=== PATIENT | female | born 1970 | race Caucasian/White ===

== ENCOUNTER 2019-07-23 09:20 | Outpatient (CLI) | payer OTHER, SELFPAY ==
[2019-07-23 09:35] LABS: Basophils Absolute Auto 0.07 K/mm3 (0.00-0.10); Basophils Percent Auto 0.8 % (0.0-1.0); Eosinophils Percent Auto 2.2 % (1.0-6.0); Hematocrit 39.8 % (35.0-49.0); Hemoglobin 12.8 g/dL (12.0-15.0); Immature Granulocyte Absolute 0.03 K/mm3 (0.00-0.00); Immature Granulocyte Percent A 0.3 % (0.0-0.0); Lymphocytes Absolute Auto 2.26 K/mm3 (1.10-4.50); Lymphocytes Percent Auto 24.7 % (18.0-42.0); Mean Corpuscular HGB Conc 32.2 g/dL (32.0-36.0); Mean Corpuscular Hemoglobin 28.5 pg (27.0-31.0); Mean Corpuscular Volume 88.6 fL (78.0-102.0); Mean Platelet Volume 10.4 fl (9.2-11.8); Monocytes Absolute Auto 0.37 K/mm3 (0.10-0.90); Neutrophils Absolute Auto 6.2 K/mm3 (1.7-7.2); Platelet Count Result 225 K/mm3 (150-420); Red Blood Count 4.49 M/mm3 (4.20-5.40); Red Cell Distribution Width 15.6 % (11.6-14.4); White Blood Count 9.2 K/mm3 (4.8-10.8)
[2019-07-23 09:58] LABS: Hemoglobin A1C 7.4 % (<5.7)
[2019-07-23 10:08] LABS: Add Urine Microscopic? NO; Appearance Urine Clear (Clear); Bilirubin Urine Negative (Negative); Blood Urine Negative (Negative); Color Urine Yellow (Yellow); Glucose Urine UA Negative (Negative); Ketones Urine Negative (Negative); Leukocyte Esterase Ur Negative LEU/UL (Negative); Nitrate Urine Negative (Negative); Protein Urine Negative (Negative); Urobilinogen Urine 0.2 mg/dL (0.2-1.0); pH Urine 6.5 (5.0-8.0)
[2019-07-23 10:57] LABS: Creatinine Urine 135.64 mg/dL (40-278); MALB Creatinine Ratio 6.4 mg/g (0-30); Microalbumin Urine Random 8.8 mg/L
[2019-07-23 11:09] LABS: Alanine Aminotransferase 22 U/L (14-59); Albumin Level 3.3 g/dL (3.4-5.0); Alkaline Phosphatase 89 U/L (46-116); Anion Gap 10.1 mmol/L (7-16); Aspartate Amino Transferase 10 U/L (15-37); Bilirubin,Total 0.2 mg/dL (0.00-1.00); Blood Urea Nitrogen 12 mg/dL (7-18); Calcium 8.8 mg/dL (8.5-10.1); Carbon Dioxide 32 mmol/L (21-32); Chloride 101 mmol/L (98-108); Cholesterol 201 mg/dL (0-200); Creatine Kinase 87 U/L (26-192); Estimated Glomerular Filt Rate > 60; Free T3 2.74 pg/mL (2.18-3.98); Free T4 Free Thyroxine 0.74 ng/dL (0.76-1.46); Glucose 155 mg/dL (70-99); HDL Direct 26 mg/dL (40-60); LDL Cholesterol Calculated 147 mg/dL (<130); Osmolality Calculated 290 mOsm/kg (285-295); Potassium 4.1 mmol/L (3.5-5.1); Sodium 139 mmol/L (136-145); Thyroid Stimulating Hormone 2.99 uIU/mL (0.36-3.74); Total Protein 6.8 g/dL (6.4-8.2); Triglycerides 140 mg/dL (0-150)
== END 2019-07-23 09:21 | disposition home or self-care (01) ==
PROVIDERS: PCP Internal Medicine; Visit Provider Internal Medicine
DX: E78.5 Hyperlipidemia, unspecified (principal); I10 Essential (primary) hypertension; E03.9 Hypothyroidism, unspecified; E11.9 Type 2 diabetes mellitus without complications
CPT/HCPCS: 36415; 80053; 80061; 81003; 82043; 82550; 83036; 84439; 84443; 84481; 85025

== ENCOUNTER 2019-08-19 12:56 | Outpatient (CLI) | payer OTHER, SELFPAY ==
--- NOTE | ~2019-08-19 | MM_ITS ---
EXAMINATION: MM screening fab BI w adelia HISTORY: Screening mammogram TECHNIQUE: Craniocaudal and mediolateral oblique 3-D tomosynthesis images were obtained and synthetic 2-D images were generated. CAD analysis was submitted and interpreted. COMPARISON: Comparison to multiple prior studies sequentially, with oldest reviewed study dated 03/17. BREAST PARENCHYMAL COMPOSITION: There are scattered areas of fibroglandular density. FINDINGS: There is no evidence of suspicious mass, calcification, or architectural distortion to sugg est malignancy in either breast. There has been no suspicious interval change. IMPRESSION: 1. No mammographic evidence of malignancy. 2. Recommend routine screening mammography in one year. BI-RADS Category 1: Negative Reviewed, dictated and finalized at location A.
--- NOTE | ~2019-08-19 | US_ITS ---
EXAMINATION: US thyroid DATE: 08/19/2019 14:11 INDICATION: Thyroid nodule. TECHNIQUE: Multiple ultrasound images of the thyroid were obtained. COMPARISON: Ultrasound 05/28/2018, 02/04/2017 FINDINGS: The right thyroid lobe measures 3.7 x 1.2 x 1.5 cm. The left thyroid lobe measures 3.4 x 1.1 x 1.4 c m. In the left thyroid lobe, there is a 7 mm solid, hypoechoic, [id number]-bhmp-[id number] nodule with ill-defi cooper margin without echogenic foci (TI-RADS TR4). There are 2 nodules in right thyroid lobe measuring up to 4 mm. IMPRESSION: 1. Small thyroid nodules, likely not clinically significant. No follow-up is needed. Reviewed, dictated and finalized at location A. TIE MAKER IMPRESSION: 1. Small thyroid nodules, likely not clinically significant. No follow-up is ne eded.
== END 2019-08-19 12:57 | disposition home or self-care (01) ==
LOC: CHSIMG 12:57
PROVIDERS: PCP Internal Medicine; Visit Provider Internal Medicine
DX: E04.1 Nontoxic single thyroid nodule (principal); Z12.31 Encounter for screening mammogram for malignant neoplasm of breast
CPT/HCPCS: 76536; 77063; 77067

== ENCOUNTER 2019-11-18 08:41 | Outpatient (CLI) | payer OTHER, SELFPAY ==
[2019-11-18 08:59] LABS: Add Urine Microscopic? YES; Appearance Urine Sl Cloudy (Clear); Bilirubin Urine Negative (Negative); Blood Urine Negative (Negative); Color Urine Yellow (Yellow); Glucose Urine UA Negative (Negative); Ketones Urine Negative (Negative); Leukocyte Esterase Ur 1+ (Negative); Nitrate Urine Negative (Negative); Protein Urine Trace (Negative); Specific Grav Ur 1.025 (1.010-1.020); Urobilinogen Urine 0.2 mg/dL (0.2-1.0)
[2019-11-18 09:03] LABS: RBC Urine 0-2 /hpf (0-2); Squamous Epithelial Cell Urine Moderate /hpf (Few); WBC Urine 0-3 /hpf (0-3)
[2019-11-18 09:04] LABS: Bacteria Urine 3+ /hpf
[2019-11-18 09:20] LABS: Basophils Absolute Auto 0.05 K/mm3 (0.00-0.10); Basophils Percent Auto 0.5 % (0.0-1.0); Eosinophils Percent Auto 2.1 % (1.0-6.0); Hematocrit 40.3 % (35.0-49.0); Hemoglobin 13.1 g/dL (12.0-15.0); Immature Granulocyte Absolute 0.04 K/mm3 (0.00-0.00); Immature Granulocyte Percent A 0.4 % (0.0-0.0); Lymphocytes Absolute Auto 2.56 K/mm3 (1.10-4.50); Lymphocytes Percent Auto 26.4 % (18.0-42.0); Mean Corpuscular HGB Conc 32.5 g/dL (32.0-36.0); Mean Corpuscular Volume 89.4 fL (78.0-102.0); Mean Platelet Volume 10.3 fl (9.2-11.8); Monocytes Absolute Auto 0.38 K/mm3 (0.10-0.90); Monocytes Percent Auto 3.9 % (2.0-11.0); Neutrophils Absolute Auto 6.5 K/mm3 (1.7-7.2); Neutrophils Percent Auto 66.7 % (50.0-70.0); Platelet Count Result 255 K/mm3 (150-420); Red Blood Count 4.51 M/mm3 (4.20-5.40); Red Cell Distribution Width 16.6 % (11.6-14.4); White Blood Count 9.7 K/mm3 (4.8-10.8)
[2019-11-18 09:21] LABS: Hemoglobin A1C 6.9 % (<5.7)
[2019-11-18 09:49] LABS: Alanine Aminotransferase 21 U/L (14-59); Albumin Level 3.2 g/dL (3.4-5.0); Alkaline Phosphatase 79 U/L (46-116); Anion Gap 9.2 mmol/L (7-16); Aspartate Amino Transferase 12 U/L (15-37); Bilirubin,Total 0.3 mg/dL (0.00-1.00); Blood Urea Nitrogen 11 mg/dL (7-18); Calcium 8.9 mg/dL (8.5-10.1); Carbon Dioxide 32 mmol/L (21-32); Chloride 102 mmol/L (98-108); Cholesterol 204 mg/dL (0-200); Creatine Kinase 91 U/L (26-192); Estimated Glomerular Filt Rate > 60; Free T4 Free Thyroxine 1.16 ng/dL (0.76-1.46); Glucose 120 mg/dL (70-99); HDL Direct 22 mg/dL (40-60); LDL Cholesterol Calculated 152 mg/dL (<130); Osmolality Calculated 288 mOsm/kg (285-295); Potassium 4.2 mmol/L (3.5-5.1); Sodium 139 mmol/L (136-145); Thyroid Stimulating Hormone 1.23 uIU/mL (0.36-3.74); Total Protein 6.4 g/dL (6.4-8.2); Triglycerides 151 mg/dL (0-150)
== END 2019-11-18 08:42 | disposition home or self-care (01) ==
PROVIDERS: PCP Internal Medicine; Visit Provider Internal Medicine
DX: E03.4 Atrophy of thyroid (acquired) (principal); E78.2 Mixed hyperlipidemia; I10 Essential (primary) hypertension; E11.9 Type 2 diabetes mellitus without complications
CPT/HCPCS: 36415; 80053; 80061; 81001; 82550; 83036; 84439; 84443; 85025

== ENCOUNTER 2020-02-11 13:27 | Outpatient (CLI) | payer OTHER, SELFPAY ==
--- NOTE | ~2020-02-11 | US_ITS ---
EXAMINATION: US venous doppler LE EXAM DATE: 02/11/2020 14:10 INDICATION: Bilateral leg edema. TECHNIQUE: Multiple grayscale, color flow and Doppler images of the lower extremity deep venous syste ms bilaterally were obtained and reviewed. There is no prior study for comparison. FINDINGS: Right side: The right common femoral, femoral and profunda veins demonstrate normal color flow, respi ratory variation, augmentation and compressibility. Compressibility, color flow confirmed within the right popliteal, posterior tibial, peroneal, and greater saphenous veins. Left side: The left common femoral, femoral and profunda veins demonstrate normal color flow, respira tory variation, augmentation and compressibility. Compressibility, color flow confirmed within the l eft popliteal, posterior tibial, peroneal, and greater saphenous veins. IMPRESSION: 1. No lower extremity deep venous thrombosis bilaterally. Reviewed, dictated and finalized at location A.
[2020-02-11 13:41] LABS: Basophils Absolute Auto 0.08 K/mm3 (0.00-0.10); Basophils Percent Auto 0.7 % (0.0-1.0); Eosinophils Absolute Auto 0.26 K/mm3 (0.02-0.50); Eosinophils Percent Auto 2.1 % (1.0-6.0); Hematocrit 34.7 % (35.0-49.0); Hemoglobin 10.8 g/dL (12.0-15.0); Immature Granulocyte Absolute 0.07 K/mm3 (0.00-0.00); Immature Granulocyte Percent A 0.6 % (0.0-0.0); Lymphocytes Absolute Auto 3.07 K/mm3 (1.10-4.50); Mean Corpuscular HGB Conc 31.1 g/dL (32.0-36.0); Mean Corpuscular Hemoglobin 28.3 pg (27.0-31.0); Mean Corpuscular Volume 91.1 fL (78.0-102.0); Mean Platelet Volume 9.8 fl (9.2-11.8); Monocytes Absolute Auto 0.59 K/mm3 (0.10-0.90); Monocytes Percent Auto 4.8 % (2.0-11.0); Neutrophils Absolute Auto 8.2 K/mm3 (1.7-7.2); Neutrophils Percent Auto 66.8 % (50.0-70.0); Platelet Count Result 289 K/mm3 (150-420); Red Blood Count 3.81 M/mm3 (4.20-5.40); Red Cell Distribution Width 15.9 % (11.6-14.4); White Blood Count 12.3 K/mm3 (4.8-10.8)
[2020-02-11 13:56] LABS: D Dimer 0.46 mg/L (0.19-0.50)
[2020-02-11 14:07] LABS: Alanine Aminotransferase 19 U/L (14-59); Albumin Level 2.9 g/dL (3.4-5.0); Alkaline Phosphatase 75 U/L (46-116); Anion Gap 8 mmol/L (8-16); Aspartate Amino Transferase 11 U/L (15-37); Bilirubin,Total 0.2 mg/dL (0.00-1.00); Blood Urea Nitrogen 8 mg/dL (7-18); Calcium 8.6 mg/dL (8.5-10.1); Carbon Dioxide 31 mmol/L (21-32); Chloride 102 mmol/L (98-108); Estimated Glomerular Filt Rate > 60; Free T4 Free Thyroxine 0.96 ng/dL (0.76-1.46); Glucose 86 mg/dL (70-99); Osmolality Calculated 289 mOsm/kg (285-295); Potassium 3.5 mmol/L (3.5-5.1); Sodium 141 mmol/L (136-145); Thyroid Stimulating Hormone 2.84 uIU/mL (0.36-3.74); Total Protein 6.4 g/dL (6.4-8.2)
== END 2020-02-11 13:28 | disposition home or self-care (01) ==
LOC: CHSLAB 13:30
PROVIDERS: PCP Internal Medicine; Visit Provider Internal Medicine
DX: R60.0 Localized edema (principal); E03.9 Hypothyroidism, unspecified
CPT/HCPCS: 36415; 80053; 84439; 84443; 85025; 85380; 93970

== ENCOUNTER 2020-03-03 13:56 | Outpatient (CLI) | payer OTHER, SELFPAY ==
--- NOTE | ~2020-03-03 | US_ITS ---
EXAMINATION: US thyroid DATE: 03/03/2020 14:41 INDICATION: Thyroid nodule. TECHNIQUE: Multiple ultrasound images of the thyroid were obtained. COMPARISON: Thyroid ultrasound 05/28/2018, 02/04/2017 FINDINGS: The right thyroid lobe measures 4.1 x 1.4 x 1.5 cm. The left thyroid lobe measures 4.0 x 1.2 x 1.2 c m. There are a few nodules in the thyroid measuring up to 4 mm. IMPRESSION: 1. Small thyroid nodules, likely not clinically significant. No follow-up is needed. Reviewed, dictated and finalized at location A. IMPRESSION: 1. Small thyroid nodules, likely not clinically significant. No follow-up is ne eded.
[2020-03-03 14:59] LABS: Anion Gap 4 mmol/L (8-16); Blood Urea Nitrogen 15 mg/dL (7-18); Calcium 8.6 mg/dL (8.5-10.1); Carbon Dioxide 32 mmol/L (21-32); Chloride 103 mmol/L (98-108); Estimated Glomerular Filt Rate > 60; Glucose 175 mg/dL (70-99); Osmolality Calculated 292 mOsm/kg (285-295); Potassium 3.9 mmol/L (3.5-5.1); Sodium 139 mmol/L (136-145)
== END 2020-03-03 13:57 | disposition home or self-care (01) ==
PROVIDERS: PCP Internal Medicine; Visit Provider Internal Medicine
DX: E04.1 Nontoxic single thyroid nodule (principal); E87.1 Hypo-osmolality and hyponatremia
CPT/HCPCS: 36415; 76536; 80048

== ENCOUNTER → 2020-10-16 00:11 | Outpatient (CLI) | payer OTHER, SELFPAY ==
[2020-10-16 19:15] LABS: SARS-CoV-2 RNA PCR Negative
== END ==
PROVIDERS: PCP Internal Medicine; Visit Provider Surgery
DX: Z01.812 Encounter for preprocedural laboratory examination (principal); Z20.822 Contact with and (suspected) exposure to COVID-19
CPT/HCPCS: C9803; U0003; U0005

== ENCOUNTER 2020-10-19 01:35 | Day surgery (SDC) | payer OTHER, SELFPAY ==
[2020-10-11 10:35] VITALS: BMI 43.3
--- NOTE | 2020-10-18 11:34 | WPDANESEPPF ---
Anes - Initial Pre Proc Eval Procedure: Operation Date: 10/19/20 10:00 Proposed Procedures p Screening Colonoscopy - Daniel Hoffman DO Date/Time: 10/18/20 11:34 Surgeon: Daniel Hoffman DO Pre Op Diagnosis: neoplasm screening Patient Data Age: 49 Gender: F Height: 1.55 m Weight: 104 kg Allergies Allergy/AdvReac Type Severity Reaction Status Date / Time Penicillins Allergy Intermediate Hives Verified 10/19/20 08:48 Home Medications Medication Instructions Recorded Confirmed Type fluticasone propion-salmeterol 2 inh INHALATION BID 10/11/20 10/11/20 History glipizide 10 mg PO DAILY 10/11/20 10/11/20 History levothyroxine 75 mcg PO DAILY 10/11/20 10/11/20 History lisinopril-hydrochlorothiazide 1 tablet PO DAILY 10/11/20 10/11/20 History lovastatin 40 mg PO DAILY 10/11/20 10/11/20 History sertraline 200 mg PO DAILY 10/11/20 10/11/20 History umeclidinium [Incruse Ellipta] 1 inh INHALATION DAILY 10/11/20 10/11/20 History Patient hx anesthesia problems: none Family hx anesthesia problems: none PMFSH Past Medical History Medical History (Updated 10/18/20 @ 11:35 by Tarun Valverde DO) Anxiety Asthma COPD (chronic obstructive pulmonary disease) Depression Diabetes type 2, controlled Hyperlipidemia Hypertension Hypothyroidism PHILLIP (obstructive sleep apnea) Surgical History Surgical History (Updated 10/18/20 @ 11:35 by Tarun Valverde DO) History of tubal ligation Family History Family History (Updated 01/12/16 @ 23:19 by DOCTOR UNKNOWN) Mother Family history of chronic obstructive pulmonary disease Father Family history of diabetes mellitus in first degree relative Other Family history of cardiovascular disease Family history of malignant neoplasm Social History Social History Smoking packs per day: 0.75 Smoking cigarettes per day: 15.0 Years smoked: 30 Smoking pack-years: 22.50 Smoking status: Current every day smoker Tobacco type: cigarettes Alcohol intake: current Substance use: never Substance use type: does not use Spiritual care concerns: No Anes - Eval Final PreProcedure Day of Procedure 10/18/20 11:34 Patient weight: morbidly obese Heart: regular rate and rhythm Lungs: clear to auscultation and normal air movement Airway: Mallampati scale class 1 Neurological: alert and oriented Last oral intake: >/= 8 hours ASA classification: III Emergent: no Anesthetic plan: proceed Anesthesia type and monitoring: general GIVS and standard monitoring Informed Consent: The patient's anesthetic plan and its attendant risks and benefits were discussed with the patient/family/POA. Questions were solicited and answers provided to the satisfaction of the patient/family/POA.
[2020-10-19 08:49] VITALS: BP 137/77; PULSE 84; RESP 22; TEMP 36.4; O2SAT 98
[2020-10-19] MEDS: LACTATED RINGERS 1,000 ML 150 ML IV CONT (09:03)
[2020-10-19 09:10] LABS: Glucose Point of Care 110 (65-105)
--- NOTE | 2020-10-19 09:44 | PM.IMHP ---
H&P: HPI History of Present Illness Date/Time: 10/19/20 09:44 Chief Complaint: low iron Narrative: this is a 49-year-old woman who presents for her 1st colonoscopy. He states that her doctor told her her iron levels were low and she is also due for colonoscopy at her age. She denies any hematochezia or melena. There are no first-degree relatives with colon cancer, but she does have a grandmother who colon cancer at an old age. Review of Systems Review of Systems: All systems reviewed & are unremarkable except as noted in HPI and below Constitutional: Constitutional: Denies chills, Denies fever(s), Denies headache(s) and Denies weight loss Eyes: Eyes: Denies change in vision ENT: Denies dizziness, Denies headache(s), Denies neck mass and Denies throat swelling Cardiovascular: Cardiovascular: Denies chest pain, Denies lightheadedness and Denies dyspnea Respiratory: Respiratory: Denies cough, Denies dyspnea and Denies wheezing Gastrointestinal: Gastrointestinal: Denies abdominal pain, Denies change in bowel habits, Denies nausea and Denies vomiting Genitourinary: Genitourinary: Denies hematuria and Denies dysuria Musculoskeletal: Musculoskeletal: Reports as per HPI Integumentary/Breasts: Skin/Breast: Reports as per HPI Neurologic: Denies dizziness and Denies headache(s) Allergic/Immunologic: Allergic/Immunologic: Denies throat swelling and Denies wheezing FOR[facility]LY [facility] Past Medical History Medical History Anxiety Asthma COPD (chronic obstructive pulmonary disease) Depression Diabetes type 2, controlled Hyperlipidemia Hypertension Hypothyroidism PHILLIP (obstructive sleep apnea) Surgical History Surgical History History of tubal ligation Family History Family History Mother Family history of chronic obstructive pulmonary disease Father Family history of diabetes mellitus in first degree relative Other Family history of cardiovascular disease Family history of malignant neoplasm Social History Social History Smoking packs per day: 0.75 Smoking cigarettes per day: 15.0 Years smoked: 30 Smoking pack-years: 22.50 Smoking status: Current every day smoker Tobacco type: cigarettes Alcohol intake: current Substance use: never Substance use type: does not use Spiritual care concerns: No Meds Home Medications and Allergies Home Medications Medication Instructions Recorded Confirmed Type fluticasone propion-salmeterol 2 inh INHALATION BID 10/11/20 10/11/20 History glipizide 10 mg PO DAILY 10/11/20 10/11/20 History levothyroxine 75 mcg PO DAILY 10/11/20 10/11/20 History lisinopril-hydrochlorothiazide 1 tablet PO DAILY 10/11/20 10/11/20 History lovastatin 40 mg PO DAILY 10/11/20 10/11/20 History sertraline 200 mg PO DAILY 10/11/20 10/11/20 History umeclidinium [Incruse Ellipta] 1 inh INHALATION DAILY 10/11/20 10/11/20 History Allergies Allergy/AdvReac Type Severity Reaction Status Date / Time Penicillins Allergy Intermediate Hives Verified 10/19/20 08:48 Vital Signs Vital Signs - 24 hr 10/19/20 08:49 Temperature 36.4 C Pulse Rate 84 Respiratory Rate 22 H Blood Pressure 137/77 Pulse Oximetry 98 Exam Const: General: no acute distress and alert Orientation/consciousness: patient oriented x3 HENMT: Head: normocephalic and atraumatic Ears: hearing grossly normal bilaterally General nose exam: Normal nares present Mouth: Yes Normal oral and palatal mucosa present Eyes: Periorbital: periorbital findings normal Sclera: sclerae normal EOM: EOMs intact bilaterally Neck: Neck: normal visual inspection, no lymphadenopathy and trachea midline Chest: Chest palpation & inspection: normal inspection of the chest Resp: Effort & Inspection: normal res
[2020-10-19 11:00] VITALS: BP 130/77; PULSE 90; RESP 16; O2SAT 98
[2020-10-19 11:10] VITALS: BP 133/70; PULSE 85; RESP 18; O2SAT 98
[2020-10-19 11:20] VITALS: BP 134/81; PULSE 91; RESP 21; O2SAT 97
== END 2020-10-19 11:26 | disposition home or self-care (01) ==
PROVIDERS: PCP Internal Medicine; Visit Provider Surgery
PROC: 0DJD8ZZ Inspection of Lower Intestinal Tract, Via Natural or Artificial Opening Endoscopic (ICD-10-PCS; CPT 45378; principal; 2020-10-19 10:00)
DX: Z12.11 Encounter for screening for malignant neoplasm of colon (principal); D12.3 Benign neoplasm of transverse colon; K63.5 Polyp of colon; K57.30 Diverticulosis of large intestine without perforation or abscess without bleeding; J45.909 Unspecified asthma, uncomplicated; F41.8 Other specified anxiety disorders; G47.33 Obstructive sleep apnea (adult) (pediatric); E78.5 Hyperlipidemia, unspecified; E11.9 Type 2 diabetes mellitus without complications; E03.9 Hypothyroidism, unspecified; I10 Essential (primary) hypertension; Z87.891 Personal history of nicotine dependence; E66.01 Morbid (severe) obesity due to excess calories; Z68.42 Body mass index [BMI] 45.0-49.9, adult; Z80.0 Family history of malignant neoplasm of digestive organs
CPT/HCPCS: 45385; 82948; 88305; J2704; J7120

== ENCOUNTER 2021-05-08 10:34 | Outpatient (CLI) | payer OTHER, SELFPAY ==
[2021-05-08 10:47] LABS: Basophils Absolute Auto 0.08 K/mm3 (0.00-0.10); Basophils Percent Auto 0.7 % (0.0-1.0); Eosinophils Absolute Auto 0.24 K/mm3 (0.02-0.50); Hematocrit 43.3 % (35.0-49.0); Hemoglobin 13.4 g/dL (12.0-15.0); Immature Granulocyte Absolute 0.05 K/mm3 (0.00-0.00); Immature Granulocyte Percent A 0.4 % (0.0-0.0); Lymphocytes Absolute Auto 3.17 K/mm3 (1.10-4.50); Lymphocytes Percent Auto 26.7 % (18.0-42.0); Mean Corpuscular HGB Conc 30.9 g/dL (32.0-36.0); Mean Corpuscular Hemoglobin 29.2 pg (27.0-31.0); Mean Corpuscular Volume 94.3 fL (78.0-102.0); Mean Platelet Volume 10.1 fl (9.2-11.8); Monocytes Absolute Auto 0.55 K/mm3 (0.10-0.90); Monocytes Percent Auto 4.6 % (2.0-11.0); Neutrophils Absolute Auto 7.8 K/mm3 (1.7-7.2); Neutrophils Percent Auto 65.6 % (50.0-70.0); Platelet Count Result 316 K/mm3 (150-420); Red Blood Count 4.59 M/mm3 (4.20-5.40); Red Cell Distribution Width 15.6 % (11.6-14.4); White Blood Count 11.9 K/mm3 (4.8-10.8)
[2021-05-08 11:05] LABS: Hemoglobin A1C 5.8 % (<5.7)
[2021-05-08 11:44] LABS: Alanine Aminotransferase 22 U/L (14-59); Albumin Level 3.4 g/dL (3.4-5.0); Alkaline Phosphatase 79 U/L (46-116); Anion Gap 8 mmol/L (8-16); Aspartate Amino Transferase 10 U/L (15-37); Bilirubin,Total 0.2 mg/dL (0.00-1.00); Blood Urea Nitrogen 13 mg/dL (7-18); Calcium 8.9 mg/dL (8.5-10.1); Carbon Dioxide 32 mmol/L (21-32); Chloride 102 mmol/L (98-108); Cholesterol 170 mg/dL (0-200); Estimated Glomerular Filt Rate > 60; Ferritin 81 ng/mL (8-252); Glucose 133 mg/dL (70-99); HDL Direct 24 mg/dL (40-60); Iron 45 ug/dL (50-170); LDL Cholesterol Calculated 126 mg/dL (<130); Osmolality Calculated 296 mOsm/kg (285-295); Percent Iron Saturation 14 % (12-57); Potassium 4.2 mmol/L (3.5-5.1); Sodium 142 mmol/L (136-145); Total Protein 6.5 g/dL (6.4-8.2); Triglycerides 100 mg/dL (0-150)
[2021-05-08 15:19] LABS: Free T4 Free Thyroxine 1.04 ng/dL (0.76-1.46)
== END 2021-05-08 10:35 | disposition home or self-care (01) ==
LOC: CHSLAB 10:36
PROVIDERS: PCP Internal Medicine; Visit Provider Internal Medicine
DX: D50.9 Iron deficiency anemia, unspecified (principal); E78.5 Hyperlipidemia, unspecified; E11.9 Type 2 diabetes mellitus without complications; E03.9 Hypothyroidism, unspecified
CPT/HCPCS: 36415; 80053; 80061; 82728; 83036; 83540; 83550; 84439; 84443; 85025

== ENCOUNTER 2021-12-25 12:01 | Outpatient (CLI) | payer OTHER, SELFPAY ==
--- NOTE | ~2021-12-25 | MM_ITS ---
EXAMINATION: MM screening [facility] BI w adelia HISTORY: Screening mammogram TECHNIQUE: Craniocaudal and mediolateral oblique 3-D tomosynthesis images were obtained and synthetic 2-D images were generated. CAD analysis was submitted and interpreted. COMPARISON: 08/19/2019, 02/09/2018, 09/17/2016 BREAST PARENCHYMAL COMPOSITION: There are scattered areas of fibroglandular density. FINDINGS: RIGHT BREAST: Asymmetry is present in the middle third of the outer breast 10 cm from the nipple on t he craniocaudal view. LEFT BREAST: There is no suspicious mass, calcification, or architectural distortion to suggest malig heri. There has been no significant interval change. IMPRESSION: 1. Right breast asymmetry. 2. Additional mammographic views and possible breast ultrasound are recommended. BI-RADS Category 0: Incomplete: Needs additional imaging evaluation. Reviewed, dictated and finalized at location A. IMPRESSION: 1. Right breast asymmetry. 2. Additional mammographic views and possible breast ultrasound are recommended . BI-RADS Category 0: Incomplete: Needs additional imaging evaluation.
== END 2021-12-25 12:02 | disposition home or self-care (01) ==
LOC: CHSIMG 12:03
PROVIDERS: PCP Internal Medicine; Visit Provider Internal Medicine
DX: Z12.31 Encounter for screening mammogram for malignant neoplasm of breast (principal)
CPT/HCPCS: 77063; 77067

== ENCOUNTER 2021-12-31 09:54 | Outpatient (CLI) | payer OTHER, SELFPAY ==
--- NOTE | ~2021-12-31 | MMUS_ITS ---
EXAMINATION: MM diagnostic fab RT w adelia, US breast RT limited HISTORY: Follow-up right breast asymmetry TECHNIQUE: Additional 3-D tomosynthesis images of the right breast were performed and synthetic 2-D i mages were generated. CAD analysis was submitted and interpreted. High resolution Limited right breas t ultrasound was performed. COMPARISON: Comparison to multiple prior studies sequentially, with oldest reviewed study dated 09/06. BREAST PARENCHYMAL COMPOSITION: Breast composed of scattered areas of fibroglandular density FINDINGS: MAMMOGRAPHIC FINDINGS: There are no suspicious masses, calcifications or architectural distortion in the right breast to sug gest malignancy. Right breast asymmetry in the lower outer quadrant is less dense with spot compressi on views, likely benign superimposed fibroglandular content. ULTRASOUND: Limited right breast ultrasound: Normal heterogeneous echotexture without focal solid or cystic mass. IMPRESSION: 1. Probable benign right breast asymmetry. 2. Recommend 6 month follow-up diagnostic right mammogram BI-RADS category 3, probably benign findings. Reviewed, dictated and finalized at location A. IMPRESSION: 1. Probable benign right breast asymmetry. 2. Recommend 6 month follow-up diagnostic right mammogram BI-RADS category 3, probably benign findings.
== END 2021-12-31 09:55 | disposition home or self-care (01) ==
LOC: CHSIMG 09:56
PROVIDERS: PCP Internal Medicine; Visit Provider Internal Medicine
DX: R92.8 Other abnormal and inconclusive findings on diagnostic imaging of breast (principal)
CPT/HCPCS: 76642; 77061; 77065; G0279

== ENCOUNTER 2022-02-08 09:58 | Outpatient (CLI) | payer OTHER, SELFPAY ==
[2022-02-08 11:13] LABS: Anion Gap 3 mmol/L (8-16); Blood Urea Nitrogen 15 mg/dL (7-17); Calcium 9.4 mg/dL (8.4-10.2); Carbon Dioxide 35 mmol/L (22-30); Chloride 95 mmol/L (98-107); Estimated Glomerular Filt Rate > 60; Glucose 110 mg/dL (65-110); Sodium 133 mmol/L (137-145)
== END 2022-02-08 09:59 | disposition home or self-care (01) ==
LOC: ANHSURGERY 10:01
PROVIDERS: Anesthesiology; PCP Internal Medicine; Visit Provider Plastic Surgery
DX: R73.03 Prediabetes (principal); Z01.818 Encounter for other preprocedural examination
CPT/HCPCS: 36415; 80048

== ENCOUNTER 2022-02-13 01:06 | Day surgery (SDC) | payer OTHER, SELFPAY ==
--- NOTE | 2022-02-05 08:58 | PC.NURSE ---
Report to the Outpatient Waiting Room, entrance under the green pavilion located off [facility], at time _0830 on date 02/13/22_. OR Time: 1030 . - You and your visitor will be asked to self-screen and do not enter if you have any COVID symptoms. - Only one visitor and NO children visitors are allowed at this time. - The patient visitor is requested to leave or wait in car when not with patient due to restrictions. - A mask is required within the hospital. Patients may have clear liquids (water, carbonated beverages, clear teas, apple juice) until 3 hours prior to surgery with a maximum of 20 ounces. - No food from midnight until time of surgery - Infants may have breast milk until 4 hours before surgery, formula 6 hours prior to surgery. - Children will be allowed to drink immediately following surgery. If applicable, please bring a bottle or sippy cup to assist with drinking. Juice, water, soda, and popsicles are readily available. For infants on formula, please bring formula the day of surgery. Pacifiers are allowed. Take the following medications with a SIP of water the morning of surgery: _SERTRALINE, LEVOTHYROXINE Medications to discontinue per physician NONE Date to take last dose Please no make-up, nail amharic, hairspray, perfume, deodorant, or body powder the day of surgery. No jewelry (including any body piercings) or valuables the day of surgery, leave them at home. Please take a shower or bath the night before, or the morning of, surgery with an antibacterial soap. Wear comfortable, loose fitting clothing. Children are encouraged to wear pajamas. - Jewelry must be removed prior to entering the operating room. Rings and piercings that are not removed may be cut off. - The hospital will not accept responsibility for valuables. - Please leave all valuables, including medications, at home the day of surgery. If you are going home after surgery, a licensed special client bus driver must drive you home. - NO public transportation without another adult. - We recommend that an adult stay with you for 24 hours following discharge. - We also recommend that you do not drive, make important decision, drink alcoholic beverages, or take any drugs that were not prescribed by your health care provider for at least 24 hours after your discharge time. For Pediatric surgeries, we recommend two adults accompany the child home (only one inside the building at this time). Follow any additional instructions given to you from your surgeon. If you or anyone in your household have experienced Covid symptoms in the past week, please notify your surgeon or the nurse liaison at the phone number below for possible testing. Telephone instructions given to _PATIENT_and asked if any additional questions and then verbalized understanding. Patient advised to call surgeon office or pre surgery nurse liaison [phone] if any additional questions.
--- NOTE | 2022-02-13 07:13 | WPDHPUPDATE1 ---
History and Physical Update Update Date/Time: 02/13/22 07:13 History and Physical has been reviewed, including an updated exam of the patient. There are NO changes in the patient's condition. Risks, benefits, and alternatives have been discussed and questions answered. Patient agrees to proceed with procedure.
[2022-02-13 08:37] VITALS: BMI 41.0
[2022-02-13 09:00] VITALS: BP 135/75; PULSE 73; RESP 16; TEMP 36.5; O2SAT 100
[2022-02-13 09:10] LABS: Glucose Point of Care 103 mg/dl (65-105)
[2022-02-13] MEDS: LACTATED RINGERS 1,000 ML 30 ML IV CONT (09:20)
--- NOTE | 2022-02-13 09:41 | WPDANESEPPF ---
Anes - Initial Pre Proc Eval Procedure: Operation Date: 02/13/22 10:30 Proposed Procedures p Excision of Left Volar Wrist Ganglion Cyst - Stephon Causey MD Date/Time: 02/13/22 09:41 Surgeon: Stephon Causey MD Pre Op Diagnosis: left vo Patient Data Age: 51 Gender: F Height: 1.55 m Weight: 98.5 kg Last Vital Signs Temp 36.5 C 02/13/22 09:00 Pulse 73 02/13/22 09:00 Resp 16 02/13/22 09:00 BP 135/75 02/13/22 09:00 Pulse Ox 100 02/13/22 09:00 O2 Del Method Room Air 02/13/22 09:00 Allergies Allergy/AdvReac Type Severity Reaction Status Date / Time Penicillins Allergy Intermediate Hives Verified 02/05/22 08:50 Home Medications Medication Instructions Recorded Confirmed Type fluticasone 232 mcg-salmeterol 14 2 inh inhalation BID 10/11/20 02/05/22 History mcg/actuation breath activated powdr glipizide 10 mg tablet, extended 10 mg PO DAILY 10/11/20 02/05/22 History release 24 hr levothyroxine 75 mcg tablet 75 mcg PO DAILY 10/11/20 02/05/22 History lisinopril 10 1 tablet PO DAILY 10/11/20 02/05/22 History mg-hydrochlorothiazide 12.5 mg tablet lovastatin 40 mg tablet 40 mg PO DAILY 10/11/20 02/05/22 History sertraline 100 mg tablet 200 mg PO DAILY 10/11/20 02/05/22 History umeclidinium 62.5 mcg/actuation 1 inh inhalation DAILY 10/11/20 02/05/22 History blister powder for inhalation (Incruse Ellipta) Laboratory Tests 02/13/22 09:08 POC Capillary Glucose 103 mg/dl mg/dl (65-105) Patient hx anesthesia problems: none Family hx anesthesia problems: none Results Review: All pre-operative results and documents have been reviewed as part of the pre-operative evaluation. [facility] Past Medical History Medical History Anxiety Asthma COPD (chronic obstructive pulmonary disease) Depression Diabetes type 2, controlled Hyperlipidemia Hypertension Hypothyroidism PHILLIP (obstructive sleep apnea) Surgical History Surgical History History of tubal ligation Family History Family History Mother Family history of chronic obstructive pulmonary disease Father Family history of diabetes mellitus in first degree relative Other Family history of cardiovascular disease Family history of malignant neoplasm Social History Social History Smoking packs per day: 0.5 Smoking cigarettes per day: 10.0 Years smoked: 30 Smoking pack-years: 15.00 Smoking status: Current every day smoker Tobacco type: cigarettes Alcohol intake: current Drinks per week: 1 Substance use: never Substance use type: does not use Living arrangements: with family Spiritual care concerns: No Anes - Eval Final PreProcedure Day of Procedure 02/13/22 09:41 Patient weight: morbidly obese Heart: regular rate and rhythm Lungs: clear to auscultation Airway: Mallampati scale class II Neurological: alert and oriented Last oral intake: >/= 8 hours ASA classification: III Emergent: no Anesthetic plan: proceed Anesthesia type and monitoring: general GIVS and standard monitoring Results Review: All pre-operative results and documents have been reviewed as part of the pre-operative evaluation. Informed Consent: The patient's anesthetic plan and its attendant risks and benefits were discussed with the patient/family/POA. Questions were solicited and answers provided to the satisfaction of the patient/family/POA.
[2022-02-13 10:31] VITALS: BP 103/55; PULSE 71; RESP 16
[2022-02-13] MEDS: LIDO 1%/EPINEPHRINE 1:100,000 20 ML VIAL 10 ML INFILTRATE (10:35)
--- NOTE | 2022-02-13 10:37 | W.PM.PROC2 ---
Procedure Note - Detailed Date of Procedure 02/13/22 Pre-op Diagnosis left volar wrist ganglion cyst. Post-op Diagnosis Same Procedure Performed Excision of left volar wrist ganglion cyst Surgeon Stephon Causey MD Safety And Occupational Health Manager Isabel Anesthesia MAC Indications Pain Description of Procedure The right volar wrist subcutaneous mass was marked on the patient in the holding area. She was taken to the operating where she was placed supine on the operating table. A time-out was held and confirmed. She was given IV sedation. The extremity was prepped and draped usual fashion. The site on the left volar wrist was marked for incision. This area was infiltrated with 1% lidocaine with epinephrine. The extremity was exsanguinated and the tourniquet inflated to 250 mmHg. The incision was made and blunt and sharp dissection revealed the ganglion cyst. This laid up against the radial artery. It also extended into the radial carpal joint. The mass was easily dissected from the radial artery. It was followed to its base at which point it was avulsed. The tourniquet was released and several bleeding sites were cauterized with setting of 15. The wound was closed with intradermal 4-0 Monocryl sutures. A soft compressive bandage with José wrap was applied. She was discharged from the operating room stable condition. She is discharged with a prescription for hydrocodone 5/325 4. Estimated Blood Loss 1 Drains No Packing No Pathology None sent Complications No immediate complications Condition Stable Disposition Same day
[2022-02-13 10:39] LABS: Glucose Point of Care 101 mg/dl (65-105)
[2022-02-13 10:45] VITALS: BP 110/50; PULSE 68; RESP 16
[2022-02-13 11:17] VITALS: BP 112/62; PULSE 65; RESP 16
== END 2022-02-13 11:20 | disposition home or self-care (01) ==
PROVIDERS: PCP Internal Medicine; Visit Provider Plastic Surgery
PROC: (CPT 25111; principal; 2022-02-13 10:30)
DX: M67.432 Ganglion, left wrist (principal); E03.9 Hypothyroidism, unspecified; F41.9 Anxiety disorder, unspecified; J44.9 Chronic obstructive pulmonary disease, unspecified; F32.A Depression, unspecified; G47.33 Obstructive sleep apnea (adult) (pediatric); I10 Essential (primary) hypertension; E78.5 Hyperlipidemia, unspecified; E11.9 Type 2 diabetes mellitus without complications; F17.210 Nicotine dependence, cigarettes, uncomplicated; E66.01 Morbid (severe) obesity due to excess calories; Z68.41 Body mass index [BMI] 40.0-44.9, adult
CPT/HCPCS: 25111; 82948; A9270; J2250; J2704; J3010; J7120

== ENCOUNTER 2022-03-27 09:07 | Outpatient (CLI) | payer OTHER, SELFPAY ==
--- NOTE | 2022-03-27 11:00 | NEURO_ITS ---
Impression: # History of bilateral wrist pain, right worse than left. # Moderate right Carpal Tunnel Syndrome. # Mild left Carpal Tunnel Syndrome. # Normal EMG/needle exam. # Clinical correlation recommended. Nerve Conduction Studies Anti Sensory Summary Table Stim Site NR Peak (ms) P-T Amp (?V) Site1 Site2 Delta-P (ms) Dist (cm) Richard (m/s) Left Median Anti Sensory (2-3nd Digit) Wrist 3.8 48.1 Wrist 2-3nd Digit 3.8 14.0 37 Wrist 3.8 45.7 Wrist 2-3nd Digit 3.8 14.0 37 Right Median Anti Sensory (2-3nd Digit) Wrist 6.1 20.4 Wrist 2-3nd Digit 6.1 14.0 23 Wrist 6.7 5.3 Wrist 2-3nd Digit 6.1 14.0 23 Left Radial Anti Sensory (Base 1st Digit) Wrist 1.9 35.8 Wrist Base 1st Digit 1.9 0.0 Right Radial Anti Sensory (Base 1st Digit) Wrist 1.9 24.4 Wrist Base 1st Digit 1.9 0.0 Left Ulnar Anti Sensory (5th Digit) Wrist 2.8 40.6 Wrist 5th Digit 2.8 14.0 50 Right Ulnar Anti Sensory (5th Digit) Wrist 2.9 46.6 Wrist 5th Digit 2.9 14.0 48 Motor Summary Table Stim Site NR Onset (ms) O-P Amp (mV) Site1 Site2 Delta-0 (ms) Dist (cm) Richard (m/s) Left Median Motor (Abd Poll Brev) Wrist 3.6 9.0 Elbow Wrist 3.7 20.5 55 Elbow 7.3 6.3 Right Median Motor (Abd Poll Brev) Wrist 4.6 2.3 Elbow Wrist 3.5 19.5 56 Elbow 8.1 1.0 Left Ulnar Motor (Abd Dig Minimi) Wrist 2.6 6.8 A Elbow Wrist 4.6 27.0 59 A Elbow 7.2 6.1 B Elbow Wrist 3.4 19.5 57 B Elbow 6.0 6.2 Right Ulnar Motor (Abd Dig Minimi) Wrist 2.7 7.3 A Elbow Wrist 4.3 25.0 58 A Elbow 7.0 5.6 B Elbow Wrist 3.1 18.0 58 B Elbow 5.8 5.5 F Wave Studies NR F-Lat (ms) L-R F-Lat (ms) Left Median (Mrkrs) (Abd Poll Brev) 28.05 1.33 Right Median (Mrkrs) (Abd Poll Brev) 29.37 1.33 Left Ulnar (Mrkrs) (Abd Dig Min) 28.57 0.37 Right Ulnar (Mrkrs) (Abd Dig Min) 28.20 0.37 EMG Side Muscle Nerve Root Ins Act Fibs Amp Dur Recrt Comment Right 1stDorInt Ulnar C8-T1 Nml Nml Nml Nml Nml Right Ext Indicis Radial (Post Int) C7-8 Nml Nml Nml Nml Nml Right Ext Digitorum Radial (Post Int) C7-8 Nml Nml Nml Nml Nml Right BrachioRad Radial C5-6 Nml Nml Nml Nml Nml Right PronatorTeres Median C6-7 Nml Nml Nml Nml Nml Right Abd Poll Brev Median C8-T1 Nml Nml Nml Nml Nml Left 1stDorInt Ulnar C8-T1 Nml Nml Nml Nml Nml Left Ext Indicis Radial (Post Int) C7-8 Nml Nml Nml Nml Nml Left Ext Digitorum Radial (Post Int) C7-8 Nml Nml Nml Nml Nml Left BrachioRad Radial C5-6 Nml Nml Nml Nml Nml Left PronatorTeres Median C6-7 Nml Nml Nml Nml Nml Left Abd Poll Brev Median C8-T1 Nml Nml Nml Nml Nml MTDD
== END 2022-03-27 09:08 | disposition home or self-care (01) ==
LOC: ANHNEURO 09:08
PROVIDERS: PCP Internal Medicine; Visit Provider Plastic Surgery
DX: R53.83 Other fatigue (principal); R20.0 Anesthesia of skin; G56.03 Carpal tunnel syndrome, bilateral upper limbs
CPT/HCPCS: 95886; 95911

== ENCOUNTER 2022-04-05 14:12 | Outpatient (CLI) | payer OTHER, SELFPAY ==
[2022-04-05 14:43] LABS: Anion Gap 10 mmol/L (8-16); Blood Urea Nitrogen 17 mg/dL (7-17); Calcium 8.7 mg/dL (8.4-10.2); Carbon Dioxide 30 mmol/L (22-30); Chloride 98 mmol/L (98-107); Estimated Glomerular Filt Rate > 60; Glucose 104 mg/dL (65-110); Potassium 3.7 mmol/L (3.4-5.0); Sodium 138 mmol/L (137-145)
== END 2022-04-05 14:13 | disposition home or self-care (01) ==
LOC: ANHSURGERY 14:17
PROVIDERS: Anesthesiology; PCP Internal Medicine; Visit Provider Plastic Surgery
DX: Z51.81 Encounter for therapeutic drug level monitoring (principal); Z79.899 Other long term (current) drug therapy; Z01.818 Encounter for other preprocedural examination
CPT/HCPCS: 36415; 80048

== ENCOUNTER 2022-04-11 00:46 | Day surgery (SDC) | payer OTHER, SELFPAY ==
[2022-04-04 13:35] VITALS: BMI 39.5
--- NOTE | 2022-04-04 13:53 | PC.NURSE ---
Report to the Outpatient Waiting Room, entrance under the green pavilion located off [facility], at time _7:30AM on date __04/11/22 . Planned Procedure Time: _9:30AM . Time changes happen often and if your time is changed the preop area will call you the afternoon before. - You and your visitor will be asked to self-screen and do not enter if you have any COVID symptoms. - We encourage only one visitor and NO visitors under age 16 are allowed at this time. Your visitor will receive communication by the phone number that is given day of service. - The patient visitor is requested to social distance or may leave the building when not with patient due to restrictions. - A mask is required within the hospital. Patients may have clear liquids (water, carbonated beverages, clear teas, apple juice) until 3 hours prior to surgery with a maximum of 20 ounces. - No food from midnight until time of surgery. Take the following medications with a SIP of water the morning of surgery: ___BOTH INHALERS, LEVOTHYROXINE, SERTRALINE Medications to discontinue per physician ___NONE Date to take last dose Please no make-up, nail lithuanian, hairspray, perfume, deodorant, or body powder the day of surgery. No jewelry (including any body piercings) or valuables the day of surgery, leave them at home. Please take a shower or bath the night before, or the morning of, surgery with an antibacterial soap. Wear comfortable, loose fitting clothing. Children are encouraged to wear pajamas. - Jewelry must be removed prior to entering the operating room. Rings and piercings that are not removed may be cut off. - The hospital will not accept responsibility for valuables. - Please leave all valuables, including medications, at home the day of surgery. If you are going home after surgery, a licensed local delivery driver must drive you home. - NO public transportation without another adult. - We recommend that an adult stay with you for 24 hours following discharge. - We also recommend that you do not drive, make important decision, drink alcoholic beverages, or take any drugs that were not prescribed by your health care provider for at least 24 hours after your discharge time. Follow any additional instructions given to you from your surgeon. If you or anyone in your household have experienced Covid symptoms in the past week, please notify your surgeon or the nurse liaison at the phone number below for possible testing. Telephone instructions given to _PATIENT__and asked if any additional questions and then verbalized understanding. Patient advised to call surgeon office or pre surgery nurse liaison [phone] if any additional questions.
--- NOTE | 2022-04-11 07:09 | WPDHPUPDATE1 ---
History and Physical Update Update Date/Time: 04/11/22 07:09 History and Physical has been reviewed, including an updated exam of the patient. There are NO changes in the patient's condition. Risks, benefits, and alternatives have been discussed and questions answered. Patient agrees to proceed with procedure.
--- NOTE | 2022-04-11 10:14 | WPDANESEPPF ---
Anes - Initial Pre Proc Eval Procedure: Operation Date: 04/11/22 11:30 Proposed Procedures p Right Open Carpal Tunnel Release - Stephon Causey MD Date/Time: 04/11/22 10:14 Surgeon: Stephon Causey MD Pre Op Diagnosis: right carpal tunnel syndrome Patient Data Age: 51 Gender: F Height: 1.55 m Weight: 100.4 kg Allergies Allergy/AdvReac Type Severity Reaction Status Date / Time Penicillins Allergy Intermediate Hives Verified 04/11/22 09:48 Home Medications Medication Instructions Recorded Confirmed Type fluticasone 232 mcg-salmeterol 14 2 inh inhalation BID 10/11/20 04/11/22 History mcg/actuation breath activated powdr glipizide 10 mg tablet, extended 10 mg PO DAILY 10/11/20 04/11/22 History release 24 hr levothyroxine 75 mcg tablet 75 mcg PO DAILY 10/11/20 04/11/22 History lisinopril 10 1 tablet PO DAILY 10/11/20 04/11/22 History mg-hydrochlorothiazide 12.5 mg tablet lovastatin 40 mg tablet 40 mg PO DAILY 10/11/20 04/11/22 History sertraline 100 mg tablet 200 mg PO DAILY 10/11/20 04/11/22 History umeclidinium 62.5 mcg/actuation 1 inh inhalation DAILY 10/11/20 04/11/22 History blister powder for inhalation (Incruse Ellipta) Patient hx anesthesia problems: none Family hx anesthesia problems: none Results Review: All pre-operative results and documents have been reviewed as part of the pre-operative evaluation. [facility] Past Medical History Medical History Anxiety Asthma COPD (chronic obstructive pulmonary disease) Depression Diabetes type 2, controlled Hyperlipidemia Hypertension Hypothyroidism PHILLIP (obstructive sleep apnea) Surgical History Surgical History History of tubal ligation Family History Family History Mother Family history of chronic obstructive pulmonary disease Father Family history of diabetes mellitus in first degree relative Other Family history of cardiovascular disease Family history of malignant neoplasm Social History Social History Smoking packs per day: 0.75 Smoking cigarettes per day: 15.0 Years smoked: 30 Smoking pack-years: 22.50 Smoking status: Current every day smoker Tobacco type: cigarettes Alcohol intake: current Drinks per week: 1 Substance use: never Substance use type: does not use Living arrangements: with family Additional living arrangements comments: SPOUSE Spiritual care concerns: No Anes - Eval Final PreProcedure Day of Procedure 04/11/22 10:14 Patient weight: morbidly obese Heart: regular rate and rhythm Lungs: clear to auscultation Airway: Mallampati scale class II Neurological: alert and oriented Last oral intake: >/= 8 hours ASA classification: III Emergent: no Anesthetic plan: proceed Anesthesia type and monitoring: general GIVS and standard monitoring Results Review: All pre-operative results and documents have been reviewed as part of the pre-operative evaluation. Informed Consent: The patient's anesthetic plan and its attendant risks and benefits were discussed with the patient/family/POA. Questions were solicited and answers provided to the satisfaction of the patient/family/POA.
[2022-04-11] MEDS: LACTATED RINGERS 1,000 ML 30 ML IV CONT (10:17)
[2022-04-11 10:18] VITALS: BP 119/66; PULSE 71; RESP 16; TEMP 36.8; O2SAT 98
[2022-04-11 10:18] LABS: Glucose Point of Care 111 mg/dl (65-105)
[2022-04-11] MEDS: BACITRACIN OINTMENT 15 GM TUBE 1 APPLIC TOPICAL (13:03)
[2022-04-11 13:07] VITALS: BP 115/59; PULSE 86; RESP 16; O2SAT 100
[2022-04-11 13:23] LABS: Glucose Point of Care 94 mg/dl (65-105)
--- NOTE | 2022-04-11 13:23 | P.OP_ITS ---
Procedure Note - Detailed Date of Procedure 04/11/22 Pre-op Diagnosis right carpal tunnel syndrome Post-op Diagnosis Same Procedure Performed Right open carpal tunnel release Surgeon Stephon Causey MD Anesthesia MAC Description of Procedure The right carpal tunnel was marked on the patient waiting in the holding area. She was taken to the operating room where she was placed supine on the operating table. She was given IV sedation and the extremity was prepped and draped in usual fashion. Time-out was held and confirmed. The site was marked for the incision and locally infiltrated with 2% lidocaine with epinephrine. The tourniquet was inflated to 250 mmHg. The incision was made as marked. Dissecti on is carried bluntly through the subcutaneous tissue to the palmar fascia. This was divided and the carpal retinaculum visualized. This was incised with a 15. Blade. Under 3 point retraction the ligament was divided distally and proximally to completely release it. There was no unusual anatomy noted. The skin was closed with interrupted 5 0 nylon suture. The usual bandage was applied. She is discharged home with instructions wound care and follow-up. She has a prescription for hydrocodone 5/325 up at her home already. She may also use an anti-inflammatory medication if she wishes Estimated Blood Loss 0 Drains No Packing No Pathology None sent Complications No immediate complications Condition Stable Disposition Same day
[2022-04-11 13:37] VITALS: BP 115/59; PULSE 77; RESP 16
[2022-04-11 13:55] VITALS: BP 123/81; PULSE 74; RESP 16
== END 2022-04-11 14:00 | disposition home or self-care (01) ==
PROVIDERS: PCP Internal Medicine; Visit Provider Plastic Surgery
PROC: (CPT 64721; principal; 2022-04-11 11:30)
DX: G56.01 Carpal tunnel syndrome, right upper limb (principal); J44.9 Chronic obstructive pulmonary disease, unspecified; E11.9 Type 2 diabetes mellitus without complications; E78.5 Hyperlipidemia, unspecified; I10 Essential (primary) hypertension; E03.9 Hypothyroidism, unspecified; G47.33 Obstructive sleep apnea (adult) (pediatric); F41.9 Anxiety disorder, unspecified; F32.A Depression, unspecified; Z79.84 Long term (current) use of oral hypoglycemic drugs; Z79.51 Long term (current) use of inhaled steroids; F17.210 Nicotine dependence, cigarettes, uncomplicated; E66.01 Morbid (severe) obesity due to excess calories; Z68.41 Body mass index [BMI] 40.0-44.9, adult
CPT/HCPCS: 64721; 82948; A9270; J2250; J2405; J2704; J3010; J7120

== ENCOUNTER 2022-05-12 14:04 | Emergency (ER) | payer OTHER, SELFPAY ==
[2022-05-12 14:09] VITALS: BP 139/82; PULSE 106; RESP 20; TEMP 36.9; O2SAT 97
[2022-05-12 14:54] LABS: Influenza A QL RT-PCR Negative (Negative); Influenza B QL RT-PCR Negative (Negative); RSV RNA, RT-PCR Negative (Negative); SARS-CoV-2 RNA PCR Negative
--- NOTE | 2022-05-12 15:56 | PC.NURSE ---
patient states the wait is too long and left the triage area
== END 2022-05-12 16:02 | disposition left against medical advice (07) ==
PROVIDERS: Emergency Provider Emergency Medicine; PCP Internal Medicine
DX: R05.9 Cough, unspecified (principal); Z20.822 Contact with and (suspected) exposure to COVID-19
CPT/HCPCS: 87637; 99199

== ENCOUNTER 2022-08-28 11:28 | Outpatient (CLI) | payer OTHER, SELFPAY ==
[2022-08-28 12:01] LABS: Influenza Control Valid (Valid)
[2022-08-28 12:02] LABS: SARS-CoV-2 Ag Positive (Negative)
== END 2022-08-28 11:29 | disposition home or self-care (01) ==
LOC: CHSLAB 11:30
PROVIDERS: PCP Internal Medicine; Visit Provider Nurse Practitioner Family
DX: J06.9 Acute upper respiratory infection, unspecified (principal); Z20.822 Contact with and (suspected) exposure to COVID-19
CPT/HCPCS: 87426; 87804; C9803

== ENCOUNTER 2022-11-01 12:03 | Outpatient (CLI) | payer OTHER, SELFPAY ==
--- NOTE | ~2022-11-01 | XR_ITS ---
EXAMINATION: XR shoulder RT min 2V DATE: 11/01/2022 12:25 INDICATION: Right shoulder pain. TECHNIQUE: 4 views of right shoulder were obtained. COMPARISON: None. FINDINGS: Bone alignment is normal. No fracture. There is mild osteoarthritis of glenohumeral joint a nd acromioclavicular joint. IMPRESSION: 1. Mild polyarticular osteoarthritis. Reviewed, dictated and finalized at location A.
== END 2022-11-01 12:04 | disposition home or self-care (01) ==
LOC: CHSIMG 12:04
PROVIDERS: PCP Internal Medicine; Visit Provider Nurse Practitioner Family
DX: M25.511 Pain in right shoulder (principal)
CPT/HCPCS: 73030

== ENCOUNTER 2023-01-13 08:50 | Emergency (ER) | payer OTHER, SELFPAY ==
[2023-01-13 09:08] VITALS: BP 109/67; PULSE 83; RESP 18; TEMP 36.6; O2SAT 97
--- NOTE | 2023-01-13 09:16 | ED.URI ---
HPI - URI/Sore Throat General Chief Complaint: Upper Respiratory Infection Stated Complaint: sorethroat Time Seen by Provider: 01/13/23 09:17 History of Present Illness HPI Narrative: 52-year-old female with history of COPD and diabetes presented for complaint of sore throat and 'chest tightness' this morning. She states the chest tightness resolved on its own. Endorses painful swallow and mild intermittent runny nose over the past few days. She denies sick contacts. She denies associated headaches, palpitations, nausea vomiting, diarrhea, fevers or chills. Patient smokes about 1 ppd, using inhalers as directed. Not taking anything for today's symptoms. Related Data Home Medications Medication Instructions Recorded Confirmed fluticasone 232 mcg-salmeterol 14 2 inh inhalation BID 10/11/20 01/13/23 mcg/actuation breath activated powdr glipizide 10 mg tablet, extended 10 mg PO DAILY 10/11/20 01/13/23 release 24 hr levothyroxine 75 mcg tablet 75 mcg PO DAILY 10/11/20 01/13/23 lisinopril 10 1 tablet PO DAILY 10/11/20 01/13/23 mg-hydrochlorothiazide 12.5 mg tablet lovastatin 40 mg tablet 40 mg PO DAILY 10/11/20 01/13/23 sertraline 100 mg tablet 200 mg PO DAILY 10/11/20 01/13/23 umeclidinium 62.5 mcg/actuation 1 inh inhalation DAILY 10/11/20 01/13/23 blister powder for inhalation (Incruse Ellipta) diclofenac sodium 75 mg 75 mg PO DAILY 01/13/23 01/13/23 tablet,delayed release Allergies Allergy/AdvReac Type Severity Reaction Status Date / Time Penicillins Allergy Intermediate Hives Verified 01/13/23 09:15 Review of Systems Review of Systems: CONSTITUTIONAL: Denies body aches, fever, chills, or sweats. EYES: Denies visual changes, redness, or discharge. ENT: Reports sore throat denies rhinorrhea, congestion, or otalgia. CARDIOVASCULAR: Denies chest pain, palpitations, or edema. RESPIRATORY: Denies dyspnea. GASTROINTESTINAL: Denies abdominal pain, nausea, vomiting, or diarrhea. SKIN: Denies rash, itching, or wounds. MUSCULOSKELETAL: Denies back pain, joint pain, or myalgia. NEUROLOGIC: Denies headache [facility] Past Medical History Medical History Anxiety Asthma COPD (chronic obstructive pulmonary disease) Depression Diabetes type 2, controlled Hyperlipidemia Hypertension Hypothyroidism PHILLIP (obstructive sleep apnea) Surgical History Surgical History History of carpal tunnel release History of endometrial ablation History of tubal ligation Family History Family History Mother Family history of chronic obstructive pulmonary disease Alcoholism Hypertension Depression Thyroid disorder Father Family history of diabetes mellitus in first degree relative Hypertension Diabetes mellitus Heart disease Sibling Depression Grandparent Diabetes mellitus Other Family history of cardiovascular disease Family history of malignant neoplasm Social History Social History Smoking packs per day: 0.75 Smoking cigarettes per day: 15.0 Years smoked: 30 Smoking pack-years: 22.50 Smoking status: Current every day smoker Tobacco type: cigarettes Alcohol intake: current Drinks per week: 1 Substance use: never Substance use type: does not use Lack of Transportation: No Lack of Food: Never True Current Housing: I Have Housing Concerned About Future Housing: No Difficulty Paying Gas/Electric Bills: No Difficulty Paying for Meds: No Currently Unemployed: No Education: Associate Degree Difficulty w/ Childcare or Family Care: No Living arrangements: with family Additional living arrangements comments: SPOUSE Occupation/Education: occupation Gender identity (if verbalized by the patient): Female Sexual Orientation (if V
== END 2023-01-13 09:47 | disposition home or self-care (01) ==
PROVIDERS: Emergency Provider Nurse Practitioner Family; PCP Internal Medicine
DX: J02.9 Acute pharyngitis, unspecified (principal); Z20.822 Contact with and (suspected) exposure to COVID-19; F17.210 Nicotine dependence, cigarettes, uncomplicated; J44.9 Chronic obstructive pulmonary disease, unspecified; E11.9 Type 2 diabetes mellitus without complications; E78.5 Hyperlipidemia, unspecified; I10 Essential (primary) hypertension; A03.9 Shigellosis, unspecified; F41.9 Anxiety disorder, unspecified; F32.A Depression, unspecified
CPT/HCPCS: 87081; 87426; 87880; 99213; C9803; G0463

== ENCOUNTER 2023-05-06 10:46 | Emergency (ER) | payer OTHER, SELFPAY ==
--- NOTE | 2023-05-06 10:53 | ED.CHESTPAIN ---
HPI - Chest Pain General Chief Complaint: Chest Pain Stated Complaint: chest pain Time Seen by Provider: 05/06/23 10:53 Source: patient Mode of arrival: ambulatory Limitations: no limitations History of Present Illness HPI narrative: Penny is a 52-year-old female patient presenting to the clinic today with complaints of chest pain x1 day. She reports last night she started having really bad heartburn and nausea. This morning she woke up and she was having chest heaviness and pain in the right side of the chest radiating at in between her shoulder blades. Denies any shortness of breath or URI symptoms. History of hypertension, high cholesterol, sleep apnea, COPD, type 2 diabetes, asthma, and she is a current smoker. Rates the pain currently a 2-3 /10. Has not taken anything to alleviate her symptoms. Related Data Home Medications Medication Instructions Recorded Confirmed fluticasone 232 mcg-salmeterol 14 2 inh inhalation BID 10/11/20 05/06/23 mcg/actuation breath activated powdr glipizide 10 mg tablet, extended 10 mg PO DAILY 10/11/20 05/06/23 release 24 hr levothyroxine 75 mcg tablet 75 mcg PO DAILY 10/11/20 05/06/23 lisinopril 10 1 tablet PO DAILY 10/11/20 05/06/23 mg-hydrochlorothiazide 12.5 mg tablet lovastatin 40 mg tablet 40 mg PO DAILY 10/11/20 05/06/23 sertraline 100 mg tablet 200 mg PO DAILY 10/11/20 05/06/23 umeclidinium 62.5 mcg/actuation 1 inh inhalation DAILY 10/11/20 05/06/23 blister powder for inhalation (Incruse Ellipta) diclofenac sodium 75 mg 75 mg PO DAILY 01/13/23 05/06/23 tablet,delayed release Allergies Allergy/AdvReac Type Severity Reaction Status Date / Time Penicillins AdvReac Mild Hives Verified 05/06/23 10:52 Review of Systems Review of Systems: Pertinent positives per HPI. Patient denies any fever, chills, rash, headache, visual changes, dizziness, cough, runny nose, sore throat, shortness of breath, palpitations, vomiting, diarrhea, constipation, abdominal pain, or any urinary issues. [facility] Past Medical History Medical History Anxiety Asthma COPD (chronic obstructive pulmonary disease) Depression Diabetes type 2, controlled Hyperlipidemia Hypertension Hypothyroidism PHILLIP (obstructive sleep apnea) Surgical History Surgical History History of carpal tunnel release History of endometrial ablation History of tubal ligation Family History Family History Mother Family history of chronic obstructive pulmonary disease Alcoholism Hypertension Depression Thyroid disorder Father Family history of diabetes mellitus in first degree relative Hypertension Diabetes mellitus Heart disease Sibling Depression Grandparent Diabetes mellitus Other Family history of cardiovascular disease Family history of malignant neoplasm Social History Social History Smoking packs per day: 0.75 Smoking cigarettes per day: 15.0 Years smoked: 30 Smoking pack-years: 22.50 Smoking status: Current every day smoker Tobacco type: cigarettes Alcohol intake: current Drinks per week: 1 Substance use: never Substance use type: does not use Lack of Transportation: No Lack of Food: Never True Current Housing: I Have Housing Concerned About Future Housing: No Difficulty Paying Gas/Electric Bills: No Difficulty Paying for Meds: No Currently Unemployed: No Education: Associate Degree Difficulty w/ Childcare or Family Care: No Living arrangements: with family Additional living arrangements comments: SPOUSE Occupation/Education: occupation Gender identity (if verbalized by the patient): Female Sexual Orientation (if Verbalized by the Patient): Straight or Heterosexual Spiritual care concerns: No
[2023-05-06 11:01] VITALS: BP 127/75; PULSE 84; RESP 20; TEMP 36.3; O2SAT 99
--- NOTE | 2023-05-06 11:09 | ECG_ITS ---
Measurements Intervals [place] Rate: 75 P: 57 IA: 157 QRS: 49 QRSD: 92 T: 62 QT: 374 QTc: 418 Interpretive Statements SINUS RHYTHM BASELINE ARTIFACT- I, II, III, AVR, AVF NORMAL ECG NO PREVIOUS ECG AVAILABLE FOR COMPARISON Electronically Signed On 05-06-2023 13:46:28 [employer] by Brad Zarate D.O.
== END 2023-05-06 11:12 | disposition short-term general hospital (02) ==
PROVIDERS: Emergency Provider Nurse Practitioner Family; PCP Internal Medicine
DX: R07.9 Chest pain, unspecified (principal); F17.210 Nicotine dependence, cigarettes, uncomplicated; J44.9 Chronic obstructive pulmonary disease, unspecified; E11.9 Type 2 diabetes mellitus without complications; E78.5 Hyperlipidemia, unspecified; I10 Essential (primary) hypertension; E03.9 Hypothyroidism, unspecified; F41.9 Anxiety disorder, unspecified; F32.A Depression, unspecified
CPT/HCPCS: 93005; 99213; G0463

== ENCOUNTER 2023-05-06 11:34 | Emergency (ER) | payer OTHER, SELFPAY ==
[2023-05-06] VITALS (11 sets, daily range): BP systolic 113–133; BP diastolic 71–94; PULSE 72–88; RESP 13–20; TEMP 36.9; O2SAT 97–100
--- NOTE | ~2023-05-06 | XR_ITS ---
EXAMINATION: XR chest 2V DATE: 05/06/2023 12:36 INDICATION: Chest pain. TECHNIQUE: Frontal and lateral views of the chest were obtained. COMPARISON: Chest 2 views 02/22/2013 FINDINGS: There is no pneumonia, pleural effusion, or pneumothorax. The heart size is normal. IMPRESSION: 1. No acute cardiopulmonary disease. Reviewed, dictated and finalized at location E. [employer]
--- NOTE | 2023-05-06 11:39 | ECG_ITS ---
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
[2023-05-06 12:03] LABS: Basophils Absolute Auto 0.1 K/mm3 (0.0-0.1); Basophils Percent Auto 0.6 % (0.2-1.2); Eosinophils Absolute Auto 0.3 K/mm3 (0-0.3); Eosinophils Percent Auto 2.5 % (0-4.4); Hematocrit 44.4 % (37.0-47.0); Hemoglobin 14.1 g/dL (12.0-15.0); Immature Granulocyte Absolute 0.03 K/mm3 (0.00-0.031); Immature Granulocyte Percent A 0.3 % (0-0.5); Lymphocytes Percent Auto 28.7 % (18.3-44.2); Mean Corpuscular HGB Conc 31.8 g/dl (32-36); Mean Corpuscular Hemoglobin 29.6 pg (26-34); Mean Corpuscular Volume 93.3 fl (80-100); Mean Platelet Volume 10.2 fl (7.4-10.4); Monocytes Absolute Auto 0.5 K/mm3 (0.1-0.6); Monocytes Percent Auto 4.9 % (2.6-8.5); Neutrophils Absolute Auto 6.4 K/mm3 (1.3-6.7); Platelet Count Result 242 k/mm3 (150-375); Red Blood Count 4.76 M/mm3 (4.2-5.4); Red Cell Distribution Width 14.1 % (11.5-14.5); White Blood Count 10.1 K/mm3 (4.5-10.0)
[2023-05-06 12:14] LABS: Alanine Aminotransferase 21 U/L (6-35); Albumin Level 4.1 g/dL (3.5-5.1); Alkaline Phosphatase 58 U/L (38-126); Anion Gap 9 mmol/L (8-16); Aspartate Amino Transferase 19 U/L (14-36); Bilirubin,Total 0.3 mg/dL (0.2-1.3); Blood Urea Nitrogen 15 mg/dL (7-17); Calcium 9.7 mg/dL (8.4-10.2); Carbon Dioxide 34 mmol/L (22-30); Chloride 97 mmol/L (98-107); Estimated CRCL calculation 89 ml/min; Estimated Glomerular Filt Rate > 60; Glucose 133 mg/dL (65-110); Lipase 71 U/L (23-300); Potassium 3.6 mmol/L (3.4-5.0); Sodium 140 mmol/L (137-145)
[2023-05-06 12:15] LABS: Prothrombin Time 13.2 Seconds (11.1-14.7)
[2023-05-06 12:16] LABS: Partial Thromboplastin Time 28.1 SECONDS (22.3-36.8)
[2023-05-06 12:25] LABS: Troponin I < 0.012 ng/mL (0.000-0.034)
[2023-05-06] MEDS: ASPIRIN 81 MG CHEWABLE TABLET 324 MG PO (12:50)
--- NOTE | 2023-05-06 12:58 | ED.CHESTPAIN ---
HPI - Chest Pain General Chief Complaint: Chest Pain Stated Complaint: chest pain Time Seen by Provider: 05/06/23 12:57 Source: patient Mode of arrival: ambulatory Limitations: no limitations History of Present Illness HPI narrative: This is a 52 yo who presents with chest discomfort. She states she has had a heavy sensation in her chest since 0800. It radiates to her back and shoulder blade. It is a 2 or 3 out of 10 in severity. She also has a headache. Yesterday, she was nauseated all day. She thought it was heartburn so took Tums. The nausea has improved now. She saw a talent advisor ([facility]) years ago and had a catheterization done that was reported as normal. Smoke <1ppd. Her father had a silent DE amongst other health complications so patient was concerned. Denies lower extremity edema. Related Data Home Medications Medication Instructions Recorded Confirmed fluticasone 232 mcg-salmeterol 14 2 inh inhalation BID 10/11/20 05/06/23 mcg/actuation breath activated pow glipizide 10 mg tablet, extended 10 mg PO DAILY 10/11/20 05/06/23 release 24 hr levothyroxine 75 mcg tablet 75 mcg PO DAILY 10/11/20 05/06/23 lisinopril 10 1 tablet PO DAILY 10/11/20 05/06/23 mg-hydrochlorothiazide 12.5 mg tablet lovastatin 40 mg tablet 40 mg PO DAILY 10/11/20 05/06/23 sertraline 100 mg tablet 200 mg PO DAILY 10/11/20 05/06/23 umeclidinium 62.5 mcg/actuation 1 inh inhalation DAILY 10/11/20 05/06/23 blister powder for inhalation (Incruse Ellipta) diclofenac sodium 75 mg 75 mg PO DAILY 01/13/23 05/06/23 tablet,delayed release Allergies Allergy/AdvReac Type Severity Reaction Status Date / Time Penicillins AdvReac Mild Hives Verified 05/06/23 10:52 [facility] Past Medical History Medical History Anxiety Asthma COPD (chronic obstructive pulmonary disease) Depression Diabetes type 2, controlled Hyperlipidemia Hypertension Hypothyroidism PHILLIP (obstructive sleep apnea) Surgical History Surgical History History of carpal tunnel release History of endometrial ablation History of tubal ligation Family History Family History Mother Family history of chronic obstructive pulmonary disease Alcoholism Hypertension Depression Thyroid disorder Father Family history of diabetes mellitus in first degree relative Hypertension Diabetes mellitus Heart disease Cancer 2008 2020 Peripheral artery disease Acute myocardial infarction Sibling Depression Grandparent Diabetes mellitus Other Family history of cardiovascular disease Family history of malignant neoplasm Social History Social History (Updated 05/07/23 @ 14:05 by Allyssa Childers MD) Social History: Has grandchildren Smoking packs per day: 0.75 Smoking cigarettes per day: 15.0 Years smoked: 30 Smoking pack-years: 22.50 Smoking status: Current every day smoker Tobacco type: cigarettes Alcohol intake: current Drinks per week: 1 Substance use: never Substance use type: does not use Lack of Transportation: No Lack of Food: Never True Current Housing: I Have Housing Concerned About Future Housing: No Difficulty Paying Gas/Electric Bills: No Difficulty Paying for Meds: No Currently Unemployed: No Education: Associate Degree Difficulty w/ Childcare or Family Care: No Living arrangements: with family Additional living arrangements comments: SPOUSE Occupation/Education: occupation 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
[2023-05-06 14:48] LABS: D Dimer 0.71 ug/mL (<0.48)
[2023-05-06 15:01] LABS: Troponin I < 0.012 ng/mL (0.000-0.034)
[2023-05-06 15:13] LABS: Influenza A QL RT-PCR Negative (Negative); Influenza B QL RT-PCR Negative (Negative); SARS-CoV-2 RNA PCR Negative (Negative)
[2023-05-06] MEDS: BELLADONNA ALK/PHENOB ELIX 10 ML, MAG HYDROX/ALUMINUM HYD/SIMETH 30 ML, LIDOCAINE HCL 2... PO (16:07)
== END 2023-05-06 16:13 | disposition home or self-care (01) ==
PROVIDERS: Emergency Medicine; Emergency Provider Student in an Organized Health Care Education/Training Program; PCP Internal Medicine
DX: R12 Heartburn (principal); R94.31 Abnormal electrocardiogram [ECG] [EKG]; F41.9 Anxiety disorder, unspecified; J45.909 Unspecified asthma, uncomplicated; F32.A Depression, unspecified; E11.9 Type 2 diabetes mellitus without complications; I10 Essential (primary) hypertension; E78.5 Hyperlipidemia, unspecified; E03.9 Hypothyroidism, unspecified; G47.30 Sleep apnea, unspecified
CPT/HCPCS: 36415; 71046; 80053; 83690; 84484; 85025; 85380; 85610; 85730; 87636; 93005; 99284; A9270

== ENCOUNTER 2023-05-19 16:17 | Outpatient (CLI) | payer OTHER, SELFPAY ==
[2023-05-19 17:36] LABS: Influenza A QL RT-PCR Negative (Negative); Influenza B QL RT-PCR Negative (Negative); SARS-CoV-2 RNA PCR Positive (Negative)
[2023-05-19 17:37] LABS: Strep Group A RT-PCR NOT DETECTED (Negative)
== END 2023-05-19 16:18 | disposition home or self-care (01) ==
LOC: CHSLAB 16:20
PROVIDERS: PCP Internal Medicine; Visit Provider Internal Medicine
DX: U07.1 COVID-19 (principal); J06.9 Acute upper respiratory infection, unspecified
CPT/HCPCS: 87502; 87635; 87651

== ENCOUNTER 2023-05-29 07:29 | Outpatient (CLI) | payer OTHER, SELFPAY ==
--- NOTE | ~2023-05-29 | US_ITS ---
Limited Abdominal Sonogram: Real-time sonographic imaging of the right upper quadrant was performed. Clinical History: Right upper quadrant pain Findings: The liver appears echogenic, with no evidence of mass lesion or bile duct dilatation. Main portal vein demonstrates normal direction of flow. The gallbladder is well distended, and appears no rmal with no evidence of gallstone or wall thickening. The common bile duct measures 3 mm. The visua lized pancreas, aorta, and IVC are unremarkable. Impression: Diffuse fatty infiltration of liver. Reviewed, dictated and finalized at location M. PACKER OR APPLIER Impression: Diffuse fatty infiltration of liver.
== END 2023-05-29 07:30 | disposition home or self-care (01) ==
LOC: CHSIMG 07:31
PROVIDERS: PCP Internal Medicine; Visit Provider Internal Medicine
DX: R10.11 Right upper quadrant pain (principal); K76.0 Fatty (change of) liver, not elsewhere classified
CPT/HCPCS: 76705

== ENCOUNTER 2023-09-10 15:56 | Outpatient (CLI) | payer OTHER, SELFPAY ==
--- NOTE | ~2023-09-10 | XR_ITS ---
EXAMINATION: XR chest 2V DATE: 09/10/2023 16:26 INDICATION: Chest pain and cough TECHNIQUE: PA and lateral views of the chest were obtained. COMPARISON: Chest radiograph dated 05/06/2023 FINDINGS: Mild streaky atelectasis at the bilateral costophrenic angles. No other airspace opacities, pulmonary edema, pleural effusion or pneumothorax. The cardiomediastinal silhouette is normal. Mild thoracic s pondylosis. IMPRESSION: 1. Mild bibasilar atelectasis. No other acute cardiopulmonary disease. Reviewed, dictated and finalized at location A.
[2023-09-10 16:15] LABS: Basophils Absolute Auto 0.04 K/mm3 (0.00-0.10); Basophils Percent Auto 0.7 % (0.0-1.0); Eosinophils Absolute Auto 0.11 K/mm3 (0.02-0.50); Eosinophils Percent Auto 1.8 % (1.0-6.0); Hematocrit 39.5 % (35.0-49.0); Hemoglobin 12.6 g/dL (12.0-15.0); Immature Granulocyte Absolute 0.02 K/mm3 (0.00-0.00); Immature Granulocyte Percent A 0.3 % (0.0-0.0); Lymphocytes Absolute Auto 1.16 K/mm3 (1.10-4.50); Lymphocytes Percent Auto 19.5 % (18.0-42.0); Mean Corpuscular HGB Conc 31.9 g/dL (32-36); Mean Platelet Volume 10.4 fl (9.2-11.8); Monocytes Absolute Auto 0.47 K/mm3 (0.10-0.90); Monocytes Percent Auto 7.9 % (2.0-11.0); Neutrophils Absolute Auto 4.16 K/mm3 (1.70-7.20); Neutrophils Percent Auto 69.8 % (50.0-70.0); Platelet Count Result 166 K/mm3 (150-420); Red Blood Count 4.34 M/mm3 (4.20-5.40); Red Cell Distribution Width 14.5 % (11.6-14.4)
[2023-09-10 16:46] LABS: Strep Group A RT-PCR NOT DETECTED (Negative)
[2023-09-10 16:53] LABS: SARS-CoV-2 RNA PCR Negative (Negative)
[2023-09-10 16:56] LABS: Influenza A QL RT-PCR Negative (Negative); Influenza B QL RT-PCR Positive (Negative); RSV RNA, RT-PCR Negative (Negative)
== END 2023-09-10 15:57 | disposition home or self-care (01) ==
PROVIDERS: PCP Internal Medicine; Visit Provider Internal Medicine
DX: R05.9 Cough, unspecified (principal); R07.9 Chest pain, unspecified; R91.8 Other nonspecific abnormal finding of lung field
CPT/HCPCS: 36415; 71046; 85025; 87637; 87651

== ENCOUNTER 2024-01-02 13:42 | Outpatient (CLI) | payer OTHER, SELFPAY ==
--- NOTE | ~2024-01-02 | XR_ITS ---
XR chest 2V Ordering provider: Chavez Barron MD History: 53 years Female with . WHEEZING, COUGH x2 days . Comparison: September 10, 2023 FINDINGS: MEDIASTINUM: The cardiac silhouette is not enlarged. LUNGS: No infiltrates, effusions or pneumothorax. OTHER: No free air under the diaphragm. IMPRESSION: No acute cardiopulmonary pathology. Reviewed, dictated and finalized at location A.
[2024-01-02 13:55] LABS: Hematocrit 39.7 % (35.0-49.0); Hemoglobin 12.9 g/dL (12.0-15.0); Red Blood Count 4.46 M/mm3 (4.20-5.40); White Blood Count 8.3 K/mm3 (4.8-10.8)
[2024-01-02 13:56] LABS: Mean Corpuscular HGB Conc 32.5 g/dL (32-36); Mean Corpuscular Hemoglobin 28.9 pg (27.0-31.0); Mean Platelet Volume 9.7 fl (9.2-11.8); Platelet Count Result 229 K/mm3 (150-420); Red Cell Distribution Width 13.9 % (11.6-14.4)
[2024-01-02 14:05] LABS: Anion Gap 5 mmol/L (4-12); Blood Urea Nitrogen 7 mg/dL (7-18); Calcium 9.2 mg/dL (8.5-10.1); Carbon Dioxide 36 mmol/L (21-32); Chloride 94 mmol/L (98-108); Estimated Glomerular Filt Rate > 60; Glucose 88 mg/dL (70-99); Osmolality Calculated 277 mOsm/kg (285-295); Potassium 3.1 mmol/L (3.5-5.1); Sodium 135 mmol/L (136-145)
== END 2024-01-02 13:43 | disposition home or self-care (01) ==
LOC: CHSLAB 13:43
PROVIDERS: PCP Internal Medicine; Visit Provider Internal Medicine
DX: R05.9 Cough, unspecified (principal); R06.2 Wheezing
CPT/HCPCS: 36415; 71046; 80048; 85027

== ENCOUNTER 2024-02-04 15:59 | Outpatient (CLI) | payer OTHER, SELFPAY ==
--- NOTE | ~2024-02-04 | XR_ITS ---
XR knee RT min 4V 02/04/2024 16:41 Indication: Chronic knee pain Procedure: 4 views right knee Comparison: No prior studies for comparison. Findings: There is mild tricompartment osteoarthritis. No fracture or traumatic malalignment. No sign ificant joint effusion. No foreign bodies. Impression: 1: Mild tricompartment osteoarthritis of the right knee. Reviewed, dictated and finalized at location B. Impression: 1: Mild tricompartment osteoarthritis of the right knee.
== END 2024-02-04 16:00 | disposition home or self-care (01) ==
LOC: CHSIMG 16:01
PROVIDERS: PCP Internal Medicine; Visit Provider Internal Medicine
DX: M17.11 Unilateral primary osteoarthritis, right knee (principal); M25.561 Pain in right knee
CPT/HCPCS: 73564

== ENCOUNTER 2024-04-06 10:10 | Emergency (ER) | payer OTHER, SELFPAY ==
--- NOTE | 2024-04-06 10:27 | ED.BACK ---
HPI - Back Pain/Injury General Chief Complaint: Urogenital-Female Stated Complaint: Back pain Source: patient Mode of arrival: ambulatory Limitations: no limitations History of Present Illness HPI Narrative: 53-year-old female presented for complaint of bilateral lower back pain. Onset yesterday. Takes diclofenac daily. Took azo yesterday as she attributed her symptoms to UTI stating it feels similar. 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 Pain occasionally radiates from the left low back to the left side. Denies dysuria, hematuria, nausea, vomiting, abdominal pain, flank pain, constipation, diarrhea, fevers or chills. Denies pain radiating into the hips or legs, numbness, tingling, weakness of the lower extremities, or change in gait, saddle paresthesia or loss of bowel or bladder. Related Data Home Medications Medication Instructions Recorded Confirmed fluticasone 232 mcg-salmeterol 14 2 inh inhalation BID 10/11/20 04/06/24 mcg/actuation breath activated powdr glipizide 10 mg tablet, extended 10 mg PO DAILY 10/11/20 04/06/24 release 24 hr levothyroxine 75 mcg tablet 75 mcg PO DAILY 10/11/20 04/06/24 lisinopril 10 1 tablet PO DAILY 10/11/20 04/06/24 mg-hydrochlorothiazide 12.5 mg tablet lovastatin 40 mg tablet 40 mg PO DAILY 10/11/20 04/06/24 sertraline 100 mg tablet 200 mg PO DAILY 10/11/20 04/06/24 umeclidinium 62.5 mcg/actuation 1 inh inhalation DAILY 10/11/20 04/06/24 blister powder for inhalation (Incruse Ellipta) cetirizine 10 mg tablet 10 mg PO DAILY 04/06/24 04/06/24 diclofenac sodium 75 mg 75 mg PO BID 04/06/24 04/06/24 tablet,delayed release Allergies Allergy/AdvReac Type Severity Reaction Status Date / Time Penicillins AdvReac Mild Hives Verified 04/06/24 10:17 Review of Systems Review of Systems: CONSTITUTIONAL: Denies body aches, fever, chills EYES: Denies visual changes CARDIOVASCULAR: Denies chest pain, palpitations, or edema. RESPIRATORY: Denies cough or dyspnea. GASTROINTESTINAL: Denies abdominal pain, nausea, vomiting, or diarrhea. : reports frequency, denies hematuria, flank pain SKIN: Denies rash, itching, or wounds. MUSCULOSKELETAL: reports back pain NEUROLOGIC: Denies headache, numbness, tingling, or weakness. All systems reviewed & are unremarkable except as noted in HPI and below PMFSH Past Medical History Medical History Anxiety Asthma COPD (chronic obstructive pulmonary disease) Depression Diabetes type 2, controlled Hyperlipidemia Hypertension Hypothyroidism PHILLIP (obstructive sleep apnea) Surgical History Surgical History History of carpal tunnel release History of endometrial ablation History of tubal ligation Family History Family History Mother Family history of chronic obstructive pulmonary disease Alcoholism Hypertension Depression Thyroid disorder Father Family history of diabetes mellitus in first degree relative Hypertension Diabetes mellitus Heart disease Cancer 2008 2020 Peripheral artery disease Acute myocardial infarction Sibling Depression Grandparent Diabetes mellitus Other Family history of cardiovascular disease Family history of malignant neoplasm Social History Social History Social History: Has grandchildren Smoking packs per day: 0.75 Smoking cigarettes per day: 15.0 Years smoked: 30 Smoking pack-years: 22.50 Smoking status: Current every day smoker Tobacco type: cigarettes Alcohol intake: current Drinks per week: 1 Substance use: never Substance use type: does not use Lack of Transportation: No Lack of Food: Never True Current Housing: I Have Housing Concerned About Future Housing: No Difficulty Paying Gas/Electric
[2024-04-06 10:30] VITALS: BP 111/65; PULSE 85; RESP 18; TEMP 36.2; O2SAT 99
[2024-04-06 10:37] LABS: EDUAAPPEAR Clear; EDUABILI Negative (Negative); EDUABLOOD Negative (Negative); EDUACOLOR1 Yellow; EDUAGLUCOSE Negative (Negative); EDUAKETONE Negative (Negative); EDUALEUKO Negative (Negative); EDUANITRATE Negative (Negative); EDUAPH 5.5; EDUAPROTEIN Negative (Negative); EDUAUROBILI 0.2
== END 2024-04-06 10:50 | disposition home or self-care (01) ==
PROVIDERS: Emergency Provider Nurse Practitioner Family
DX: M54.50 Low back pain, unspecified (principal); F17.210 Nicotine dependence, cigarettes, uncomplicated; E11.9 Type 2 diabetes mellitus without complications; E78.5 Hyperlipidemia, unspecified; I10 Essential (primary) hypertension; F41.9 Anxiety disorder, unspecified; F32.A Depression, unspecified
CPT/HCPCS: 81003; 87086; 99213; G0463

== ENCOUNTER 2024-06-25 10:32 | Emergency (ER) | payer OTHER, SELFPAY ==
[2024-06-25 10:47] VITALS: BP 111/63; PULSE 96; RESP 16; TEMP 36.4; O2SAT 100
[2024-06-25 10:52] LABS: EDCOVIDSCREEN Negative (Negative)
[2024-06-25 11:00] LABS: EDINFLUASCREEN Negative (Negative); EDINFLUBSCREEN Negative (Negative); EDSTREPNEGPOS1 Negative (Negative)
[2024-06-25 11:02] LABS: EDINFLUASCREEN Negative (Negative); EDINFLUBSCREEN Negative (Negative)
--- NOTE | 2024-06-25 11:18 | ED_ITS ---
HPI - URI/Sore Throat General Chief Complaint: Upper Respiratory Infection Stated Complaint: aches,chills, and congestion Time Seen by Provider: 06/25/24 11:00 Source: patient Mode of arrival: ambulatory Limitations: no limitations History of Present Illness HPI Narrative: 53-year-old female presents with complaint of nasal congestion, sore throat, cough, fatigue, body aches for 1 day. Afebrile. No chest pain or shortness of breath. Denies nausea vomiting diarrhea. All systems reviewed and negative except as noted above. Related Data Home Medications ?Medication ?Instructions ?Recorded ?Confirmed ?Last Taken ?Type fluticasone 232 mcg-salmeterol 14 2 inh inhalation BID 10/11/20 04/06/24 04/11/22 07:30 History mcg/actuation breath activated powdr glipizide 10 mg tablet, extended 10 mg PO DAILY 10/11/20 04/06/24 04/10/22 History release 24 hr levothyroxine 75 mcg tablet 75 mcg PO DAILY 10/11/20 04/06/24 04/11/22 07:30 History lisinopril 10 1 tablet PO DAILY 10/11/20 04/06/24 04/10/22 History mg-hydrochlorothiazide 12.5 mg tablet lovastatin 40 mg tablet 40 mg PO DAILY 10/11/20 04/06/24 04/10/22 History sertraline 100 mg tablet 200 mg PO DAILY 10/11/20 04/06/24 04/11/22 07:30 History umeclidinium 62.5 mcg/actuation 1 inh inhalation DAILY 10/11/20 04/06/24 04/11/22 07:30 History blister powder for inhalation (Incruse Ellipta) cetirizine 10 mg tablet 10 mg PO DAILY 04/06/24 04/06/24 Unknown History diclofenac sodium 75 mg 75 mg PO BID 04/06/24 04/06/24 Unknown History tablet,delayed release Allergies Allergy/AdvReac Type Severity Reaction Status Date / Time Penicillins AdvReac Mild Hives Verified 06/25/24 10:34 Review of Systems Review of Systems: CONSTITUTIONAL: Denies fever, chills, or sweats. reports fatigue. EYES: Denies visual changes, redness, or discharge. ENT: Reports rhinorrhea, congestion, sore throat. Denies otalgia. CARDIOVASCULAR: Denies chest pain, palpitations, or edema. RESPIRATORY: reports cough. Denies dyspnea. GASTROINTESTINAL: Denies abdominal pain, nausea, vomiting, or diarrhea. GENITOURINARY: Denies dysuria or hematuria. SKIN: Denies rash or itching. MUSCULOSKELETAL: Denies back pain, joint pain . Reports myalgia. NEUROLOGIC: Denies headache, numbness, or weakness. PSYCHIATRIC: Denies anxiety or depression. All other systems reviewed are negative, except as documented in HPI. [facility] Past Medical History Medical History Anxiety Asthma COPD (chronic obstructive pulmonary disease) Depression Diabetes type 2, controlled Hyperlipidemia Hypertension Hypothyroidism PHILLIP (obstructive sleep apnea) Surgical History Surgical History History of carpal tunnel release History of endometrial ablation History of tubal ligation Family History Family History Mother Family history of chronic obstructive pulmonary disease Alcoholism Hypertension Depression Thyroid disorder Father Family history of diabetes mellitus in first degree relative Hypertension Diabetes mellitus Heart disease Cancer 2008 2020 Peripheral artery disease Acute myocardial infarction Sibling Depression Grandparent Diabetes mellitus Other Family history of cardiovascular disease Family history of malignant neoplasm Social History Social History Social History: Has grandchildren Smoking packs per day: 0.75 Smoking cigarettes per day: 15.0 Years smoked: 30 Smoking pack-years: 22.50 Smoking status: Current every day smoker Tobacco type: cigarettes Alcohol intake: current Drinks per week: 1 Substance use: never Substance use type: does not use Lack of Transportation: No Lack of Food: Never True Current Housing: I Have Housing Concerned About Future Housing: No Difficulty Paying Gas/Electric Bills: No Difficulty Paying for Meds: No Currently Unemployed: No Education: Associate Degree Difficulty w/ Childcare or Family Care: No Living arrangements: with family Additional living arrangements comments: [facility] Occupation/Education: occupation 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 There is no relevant family history pertinent to the presenting complaint. Exam Narrative: GENERAL: This is a well-nourished, well-developed patient, ill-appearing but in no acute distress HEAD: normocephalic, atraumatic. EYES: PERRL. Sclera clear/white. Vision is grossly intact. EARS: External ears normal, auditory canals clear and without drainage, TMs normal without perforation. Hearing grossly intact. NOSE: External nose normal with mild congestion, clear nasal drainage. no significant swelling or erythema to nares. THROAT: Mucous membranes moist, Mild erythema without swelling or exudates. NECK: Neck supple, non-tender without lymphadenopathy, masses or thyromegaly. CARDIOVASCULAR: Regular rate and rhythm without murmurs, gallops, or rubs. RESPIRATORY: Clear to auscultation. Breath sounds equal bilaterally. No wheezes, rales, or rhonchi. SKIN: warm, Dry, intact with no suspicious lesions or rash, good texture and turgor. NEURO: awake, alert, and oriented to person, place and time. There were no obvious focal neurologic abnormalities. EXTREMITIES: No joint tenderness, effusion, or edema noted. Course Course Level of Care: Express Care Visit Vital Signs Vital signs: Vital Signs Temperature 36.4 C L 06/25/24 10:47 Pulse Rate 96 06/25/24 10:47 Respiratory Rate 16 06/25/24 10:47 Blood Pressure 111/63 06/25/24 10:47 Pulse Oximetry 100 06/25/24 10:47 Oxygen Delivery Room Air 06/25/24 10:47 Temperature 36.4 C L 06/25/24 10:47 Pulse Rate 96 06/25/24 10:47 Respiratory Rate 16 06/25/24 10:47 Blood Pressure 111/63 06/25/24 10:47 Pulse Oximetry 100 06/25/24 10:47 Oxygen Delivery Room Air 06/25/24 10:47 Reviewed MDM - URI/Sore Throat MDM Narrative Medical decision making narrative: positive COVID. Influenza and strep. Strep culture ordered.pt offered tamiflu but did not offer. Lungs clear to auscultation. No respiratory distress. Patient well-appearing, nontoxic. Patient is aware of diagnosis, understands and agrees to treatment plan. Anticipatory guidance given. Patient agrees to follow-up as directed and is aware of reasons to seek care at the emergency department. Portions of this record may have been created with voice recognition software Lab Data Labs: Lab Results 06/25/24 06/25/24 06/25/24 Range/Units 10:50 10:58 11:00 POC Influenza A Ag Negative Negative (Negative) POC Influenza B Ag Negative Negative (Negative) POC SARS CoV-2 Ag Negative (Negative) POC Grp A Strep Screen Negative (Negative) Discharge Plan Discharge Clinical Impression: COVID-19 Patient Disposition: Home, Self-Care Condition: Stable Instructions: COVID-19 (Coronavirus Disease 2019) (ED) Additional Instructions: your COVID test was positive today. Your influenza and strep test were negative. COVID is a virus and symptoms may last 10-14 days. Take an [id number] medication to treat her symptoms such as DayQuil NyQuil cold and flu. Take ibuprofen every 6-8 hours as needed for pain and fever. Drink at least 64 oz of water a day. Follow-up with your primary care physician if symptoms are not improving. Patient Language: Haitian Prescriptions: No Action cetirizine 10 mg tablet 10 mg PO DAILY diclofenac sodium 75 mg Tablet,Delayed Release (Dr/Ec) 75 mg PO BID glipizide 10 mg tablet extended release 24hr 10 mg PO DAILY Rx Instructions: TAKES IN AM lovastatin 40 mg tablet 40 mg PO DAILY sertraline 100 mg tablet 200 mg PO DAILY Rx Instructions: TAKES IN AM levothyroxine 75 mcg tablet 75 mcg PO DAILY Rx Instructions: TAKES IN AM lisinopril-hydrochlorothiazide 10-12.5 mg tablet 1 tablet PO DAILY Rx Instructions: TAKES IN AM Incruse Ellipta 62.5 mcg/actuation blister with device 1 inh INHALATION DAILY Rx Instructions: USES IN AM fluticasone propion-salmeterol 232-14 mcg/actuation aerosol powdr breath activated 2 inh INHALATION BID alum-mag hydroxide-simeth [Maalox Advanced] 200-200-20 mg/5 mL suspension 15 ml PO QID PRN (Reason: indigestion) Qty: 3000 0RF Rx Instructions: administer between meals and at bedtime Follow-up/Referrals: Chavez Barron MD [Primary Care Provider] - Stand Alone Forms: Work/School Release IP Time of Disposition: 10:59
== END 2024-06-25 11:00 | disposition home or self-care (01) ==
PROVIDERS: Emergency Provider Nurse Practitioner Family; PCP Internal Medicine
DX: U07.1 COVID-19 (principal); E11.9 Type 2 diabetes mellitus without complications; I10 Essential (primary) hypertension; E03.9 Hypothyroidism, unspecified; J44.9 Chronic obstructive pulmonary disease, unspecified; F17.210 Nicotine dependence, cigarettes, uncomplicated
CPT/HCPCS: 87081; 87426; 87804; 87880; 99212; G0463

== ENCOUNTER 2025-04-19 07:43 | Outpatient (CLI) | payer MEDICAID, SELFPAY ==
[2025-04-19 08:22] LABS: Hematocrit 44.8 % (37.0-47.0); Hemoglobin 13.8 g/dL (12.0-15.0); Mean Corpuscular HGB Conc 30.8 g/dl (32-36); Mean Corpuscular Hemoglobin 28.9 pg (26-34); Mean Corpuscular Volume 93.7 fl (80-100); Platelet Count Result 278 k/mm3 (150-375); Red Blood Count 4.78 M/mm3 (4.2-5.4); White Blood Count 8.2 K/mm3 (4.5-10.0)
[2025-04-19 08:43] LABS: Alanine Aminotransferase 24 U/L (6-35); Albumin Level 4.2 g/dL (3.5-5.1); Alkaline Phosphatase 81 U/L (38-126); Anion Gap 6 mmol/L (4-12); Aspartate Amino Transferase 22 U/L (14-36); Bilirubin,Total 0.5 mg/dL (0.2-1.3); Blood Urea Nitrogen 16 mg/dL (7-17); Calcium 9.6 mg/dL (8.4-10.2); Carbon Dioxide 33 mmol/L (22-30); Chloride 96 mmol/L (98-107); Cholesterol 178 mg/dL (0-200); Creatine Kinase 173 U/L (30-135); Estimated Glomerular Filt Rate > 60; Glucose 169 mg/dL (65-110); HDL Direct 42 mg/dL; Potassium 5.1 mmol/L (3.4-5.0); Sodium 135 mmol/L (137-145); Total Protein 7.4 g/dL (6.3-8.2); Triglycerides 96 mg/dL (<150)
[2025-04-19 08:45] LABS: Add Urine Microscopic? YES; Appearance Urine Cloudy (Clear); Glucose Urine UA Negative (Negative); Leukocyte Esterase Ur 1+ LEU/UL (Negative); Need Manual Microscopic Reviewed; Nitrate Urine Negative (Negative); Specific Grav Ur 1.019 (1.001-1.035)
[2025-04-19 09:18] LABS: Thyroid Stimulating Hormone 4.370 uIU/mL (0.465-4.680)
[2025-04-19 09:41] LABS: Hemoglobin A1C 6.0 % (<5.7)
[2025-04-19 10:04] LABS: MALB Creatinine Ratio 5.3 mg/g (0-30)
[2025-04-19 10:12] LABS: Free T3 4.03 pg/mL (2.71-6.16); Free T4 Free Thyroxine 1.05 ng/dL (0.78-2.19)
== END 2025-04-19 07:44 | disposition home or self-care (01) ==
LOC: ANHLAB 07:49
PROVIDERS: PCP Internal Medicine; Visit Provider Internal Medicine
DX: R50.9 Fever, unspecified (principal); I10 Essential (primary) hypertension; E03.4 Atrophy of thyroid (acquired); E11.65 Type 2 diabetes mellitus with hyperglycemia; E78.2 Mixed hyperlipidemia
CPT/HCPCS: 36415; 80053; 80061; 81001; 82043; 82550; 83036; 84439; 84443; 84481; 85027